=== PATIENT | female | born 1975 | race Caucasian/White ===

== ENCOUNTER 2022-01-15 21:35 | Emergency (ER) | payer OTHER, SELFPAY ==
[2022-01-15 22:06] VITALS: BP 97/58; PULSE 86; RESP 16; TEMP 37.1; O2SAT 100; BMI 21.0
[2022-01-15 22:27] LABS: Basophils # 0.3 K/mm3 (0-0.2); Basophils % 2.5 % (0.1-2.0); Eosinophils # 0.2 K/mm3 (0.0-0.4); Eosinophils % 1.3 % (0.1-12.0); Hematocrit 40.2 % (37.0-47.0); Hemoglobin 13.9 g/dL (12.2-16.2); Lymphocytes # 3.4 K/mm3 (0.7-4.5); Lymphocytes % 25.8 % (10-50); Mean Corpuscular HGB Conc 34.5 g/dL (31.8-35.4); Mean Corpuscular Hemoglobin 30.5 pg (27.0-31.2); Mean Corpuscular Volume 88.3 fl (81-99); Monocytes # 0.7 K/mm3 (0.1-1.0); Monocytes % 5.4 % (1.7-9.3); Neutrophils # 8.7 K/mm3 (1.8-7.8); Platelet Count 456 K/mm3 (142-424); Red Blood Count 4.55 M/mm3 (4.20-5.40); Red Cell Distribution Width 14.4 % (11.5-17.5); White Blood Count 13.4 K/mm3 (4.8-10.8)
[2022-01-15 22:30] LABS: Alanine Aminotransferase 25 U/L (12-78); Albumin/Globulin Ratio 1.3 (1.1-1.8); Alkaline Phosphatase 86 U/L (38-126); Anion Gap 9.7 mEq/L (5-15); Aspartate Amino Transferase 40 U/L (14-36); Bilirubin,Total 0.2 mg/dl (0.2-1.3); Blood Urea Nitrogen 14 mg/dl (7-17); Calcium 9.3 mg/dl (8.4-10.2); Carbon Dioxide 36 mmol/L (22.0-30.0); Chloride 95 mmol/L (98-107); Creatinine Clearance Estimated 71 mL/min (50-200); Estimated Glomerular Filt Rate 77 ml/min (>60); GFR (African American) 93 ML/MIN (>60); Glucose 128 mg/dl (74-100); Sodium 139 mmol/L (136-145)
--- NOTE | 2022-01-15 22:32 | ECG_ITS ---
APPROVED REPORT Exam: Resting ECG HR:75 bpm ECG Measurements Heart Rate 75 AXES AK 156 P 85 QRSd 89 QRS 57 QT 391 T 77 QTc 420 Conclusion SINUS RHYTHM NONSPECIFIC ST & T-WAVE ABNORMALITY BORDERLINE ECG UNCONFIRMED REPORT Electronically signed by : Saul Weeks MD 01/17/2022 17:33:25
[2022-01-15 22:35] LABS: C-Reactive Protein 1.1 mg/L (0-4)
[2022-01-15 22:42] LABS: Potassium 1.7 mmoL/L (3.5-5.1)
[2022-01-15 22:49] LABS: Procalcitonin 0.049 ng/mL (0.0-2.0)
[2022-01-15 22:55] LABS: Troponin I < 0.01 ng/ml (0.00-0.034)
[2022-01-15 22:59] LABS: Coronavirus 19, PCR Not Detected (NotDetected); Influenza A, PCR Not Detected (NotDetected); Influenza B, PCR Not Detected (NotDetected)
[2022-01-15 23:14] LABS: Erythrocyte Sedimentation Rate 15 mm/hr (0-20)
[2022-01-15 23:15] VITALS: BP 104/67; PULSE 76; RESP 14; O2SAT 99
--- NOTE | 2022-01-16 00:31 | HMH.EDDIZZ ---
ED Disposition Clinical Impression: Hypokalemia Disposition: Home, Self-Care Condition on Discharge: Good Instructions: DI for Hypokalemia Additional Instructions: call pcp for follow up Prescriptions: Potassium Chloride [Pot Chlor 20 mEq Packet] 20 meq PO BID #4 packet Transmission Status: Pending to [id number] Referrals: Provider,Referral, [Primary Care Provider] - - Critical Care Critical Care Time: No Attestation: On 01/15/22, the high probability of a clinically significant, sudden or life threatening deterioration of the following system(s) required my full and direct attention, intervention and personal management. The time I documented below is in addition to time spent performing reported procedures but includes the following listed in this critical care notation. Medical Decision Making - Medical Records Medical records reviewed: Yes: I reviewed the patient's medical records. - Ricardo Inquiry Pt receiving controlled substance: No Vital Signs: 01/15/22 22:06 01/15/22 23:15 01/16/22 01:16 Temperature 98.7 F Temperature Source Oral Pulse Rate 76 77 Pulse Rate [Left Brachial] 86 Respiratory Rate 16 14 14 Blood Pressure 104/67 L 118/75 Blood Pressure [Left Arm] 97/58 L Blood Pressure Mean 82 Blood Pressure Mean [Left Arm] 71 Blood Pressure Source Blood Pressure Source [Left Arm] Automatic Cuff Blood Pressure Position Blood Pressure Position [Left Arm] Sitting 02 Sat by Pulse Oximetry 100 99 98 Oxygen Delivery Method Room Air Room Air 01/16/22 01:46 01/16/22 02:57 Temperature 98.2 F Temperature Source Oral Pulse Rate 75 75 Pulse Rate [Left Brachial] Respiratory Rate 18 Blood Pressure 106/69 L 106/69 L Blood Pressure [Left Arm] Blood Pressure Mean Blood Pressure Mean [Left Arm] Blood Pressure Source Automatic Cuff Blood Pressure Source [Left Arm] Blood Pressure Position Sitting Blood Pressure Position [Left Arm] 02 Sat by Pulse Oximetry 97 Oxygen Delivery Method Room Air Room Air - Lab Data Lab results reviewed: Yes: I reviewed the patient's lab results. Lab Results 01/15/22 22:00: WBC 13.4 H, RBC 4.55, Hgb 13.9, Hct 40.2, MCV 88.3, MCH 30.5, MCHC 34.5, RDW 14.4, Plt Count 456 H, MPV 9.0, Neut % (Auto) 65.0, Lymph % (Auto) 25.8, Teller % (Auto) 5.4, Eos % (Auto) 1.3, Baso % (Auto) 2.5 H, Neut # (Auto) 8.7 H, Lymph # (Auto) 3.4, Teller # (Auto) 0.7, Eos # (Auto) 0.2, Baso # (Auto) 0.3 H, ESR 15 01/15/22 22:00: Sodium 139, Potassium 1.7 L*, Chloride 95 L, Carbon Dioxide 36 H, Anion Gap 9.7, BUN 14, Creatinine 0.80, Estimated Creat Clear 71, Estimated GFR 77, Est GFR ( Amer) 93, Glucose 128 H, Calcium 9.3, Total Bilirubin 0.2, AST 40 H, ALT 25, Alkaline Phosphatase 86, Troponin I < 0.01, C-Reactive Protein 1.1, Total Protein 7.0, Albumin 4.0, Globulin 3.0, Albumin/Globulin Ratio 1.3, Procalcitonin 0.049 01/15/22 22:53: SARS-CoV-2 (PCR) Not detected, Influenza A Untype (PCR) Not detected, Influenza Type B (PCR) Not detected 01/16/22 00:00: Free T4 1.37 01/16/22 00:00: TSH 1.47 01/16/22 00:00: Magnesium 1.9 01/16/22 01:15: Urine Color Dark yellow, Urine Appearance Cloudy, Urine pH 6.0, Ur Specific [place] 1.025, Urine Protein 1+, Urine Glucose (UA) Negative, Urine Ketones Trace, Urine Blood 2+, Urine Nitrate Negative, Urine Bilirubin Negative, Urine Urobilinogen 1.0, Ur Leukocyte Esterase 1+ A, Urine WBC 5-10, Urine Bacteria 3+ 01/16/22 02:33: Potassium 2.4 L* D Result diagrams: 01/15/22 22:00 01/16/22 02:33 Orders (Tests/Meds): ED MEDICATIONS Discontinued Medications Generic Name Dose Route Start Last Admin Trade Name Freq PRN Reason Stop Dose Admin Sodium Chloride 1,000 mls @ 999 mls/hr 01/15/22 22:30 01/15/22 22:23 Sod Chlor 0.9% 1000ml Bag IV 01/15/22 23:30 999 mls/hr .Q1H1M ZAHIRA Administration Potassium Chloride/Water 100 mls @ 50 mls/hr 01/15/22 23:00 01/16/22 00:16 Potassium Chloride 20meq/100m
--- NOTE | 2022-01-16 00:32 | XR_ITS ---
PROCEDURE INFORMATION: Exam: XR Chest Exam date and time: 01/16/2022 12:31 AM Age: 47 years old Clinical indication: Other: Syncope TECHNIQUE: Imaging protocol: Radiologic exam of the chest. Views: 2 views. COMPARISON: No relevant prior studies available. FINDINGS: Lungs: No focal airspace consolidation. Pleural spaces: No pleural effusion. No pneumothorax. Heart/Mediastinum: Unremarkable cardiomediastinal silhouette. Bones/joints: No acute osseous findings. Gastrointestinal tract: Gastric band is noted with a more horizontal lie the normal. IMPRESSION: Gastric band is noted with a more horizontal lie the normal. Recommend fluoroscopic evaluation.
--- NOTE | 2022-01-16 00:32 | CT_ITS ---
PROCEDURE INFORMATION: Exam: CT Head Without Contrast Exam date and time: 01/16/2022 12:39 AM Age: 47 years old Clinical indication: Injury or trauma; Blunt trauma (contusions or hematomas); Consciousness not specified; Injury date: Today; Injury details: Fall, hit lt side of head; Additional info: Syncope TECHNIQUE: Imaging protocol: Computed tomography of the head without contrast. Radiation optimization: All CT scans at this facility use at least one of these dose optimization techniques: automated exposure control; mA and/or kV adjustment per patient size (includes targeted exams where dose is matched to clinical indication); or iterative reconstruction. COMPARISON: No relevant prior studies available. FINDINGS: Brain: No hemorrhage. No mass effect. Cerebral ventricles: No ventriculomegaly. Paranasal sinuses: No fluid levels. Mastoid air cells: Visualized mastoid air cells are well aerated. Bones/joints: No acute fracture. Soft tissues: The visualized soft tissue is grossly unremarkable. IMPRESSION: No evidence of acute intracranial hemorrhage.
[2022-01-16 00:55] LABS: Magnesium 1.9 mg/dl (1.6-2.3)
[2022-01-16 01:12] LABS: Free T4 (Free Thyroxine) 1.37 ng/dl (0.78-2.19)
[2022-01-16 01:16] VITALS: BP 118/75; PULSE 77; RESP 14; O2SAT 98
[2022-01-16 01:20] LABS: Microscopic, Urine URINE MICROSCOPIC (MICROSCOPIC)
[2022-01-16 01:27] LABS: Thyroid Stimulating Hormone 1.47 uIU/mL (0.465-4.68)
[2022-01-16 01:31] LABS: Blood, Urine 2+ (Negative); Glucose,Urine (UA) Negative (Negative); Ketones,Urine TRACE (Negative); Leukocyte Esterase,Urine 1+ (Negative); Nitrate,Urine Negative (Negative); Protein,Urine 1+ (Negative); Specific Gravity, Urine 1.025 (1.005-1.030)
[2022-01-16 01:33] LABS: Appearance,Urine Cloudy (Clear); Bilirubin,Urine Negative (Negative); Color,Urine Dark Yellow (Yellow)
[2022-01-16 01:46] VITALS: BP 106/69; PULSE 75; O2SAT 97
[2022-01-16 01:55] LABS: Bacteria,Urine 3+ /lpf
[2022-01-16 02:54] LABS: Potassium 2.4 mmoL/L (3.5-5.1)
--- NOTE | 2022-01-16 02:55 | PC.NURSE ---
Critical K+ called by Eleonora in lab. notified.
[2022-01-16 02:57] VITALS: BP 106/69; PULSE 75; RESP 18; TEMP 36.8; O2SAT 99
== END 2022-01-16 03:00 | disposition home or self-care (01) ==
PROVIDERS: Emergency Provider Emergency Medicine
DX: E87.6 Hypokalemia (principal)
CPT/HCPCS: 70450; 71046; 80053; 81001; 82088; 83735; 84132; 84145; 84244; 84439; 84443; 84484; 85025; 85651; 86140; 87086; 87088; 87186; 93005; 96365; 96366; 96375; 99284; C9803; J2405; U0003; U0005

== ENCOUNTER → 2022-01-17 11:43 | Outpatient (CLI) | payer OTHER, SELFPAY ==
[2022-01-17 12:50] LABS: Chloride 101 mmol/L (98-107); Sodium 141 mmol/L (136-145)
[2022-01-17 12:53] LABS: Anion Gap 6.7 mEq/L (5-15); Blood Urea Nitrogen 9 mg/dl (7-17); Calcium 9.3 mg/dl (8.4-10.2); Carbon Dioxide 36 mmol/L (22.0-30.0); Estimated Glomerular Filt Rate 89 ml/min (>60); GFR (African American) 108 ML/MIN (>60); Glucose 97 mg/dl (74-100)
[2022-01-17 13:34] LABS: Potassium 2.7 mmoL/L (3.5-5.1)
== END ==
PROVIDERS: PCP Pediatrics; Visit Provider Emergency Medicine
DX: E87.6 Hypokalemia (principal)
CPT/HCPCS: 36415; 80048

== ENCOUNTER 2022-09-19 19:59 | Emergency (ER) | payer BC, OTHER, SELFPAY ==
[2022-09-19 20:34] VITALS: BP 119/91; PULSE 127; RESP 18; TEMP 36.8; O2SAT 97; BMI 24.7
[2022-09-19 20:49] LABS: Basophils # 0.3 K/mm3 (0-0.2); Basophils % 1.5 % (0.1-2.0); Eosinophils # 0.2 K/mm3 (0.0-0.4); Eosinophils % 1.2 % (0.1-12.0); Hematocrit 46.8 % (37.0-47.0); Hemoglobin 16.3 g/dL (12.2-16.2); Lymphocytes # 3.3 K/mm3 (0.7-4.5); Lymphocytes % 17.2 % (10-50); Mean Corpuscular HGB Conc 34.9 g/dL (31.8-35.4); Mean Corpuscular Hemoglobin 30.5 pg (27.0-31.2); Mean Corpuscular Volume 87.4 fl (81-99); Mean Platelet Volume 10.1 fl (7.4-10.4); Microscopic, Urine URINE MICROSCOPIC (MICROSCOPIC); Monocytes # 0.8 K/mm3 (0.1-1.0); Monocytes % 4.1 % (1.7-9.3); Neutrophils # 14.5 K/mm3 (1.8-7.8); Platelet Count 514 K/mm3 (142-424); Red Blood Count 5.35 M/mm3 (4.20-5.40); Red Cell Distribution Width 13.3 % (11.5-17.5); White Blood Count 19.1 K/mm3 (4.8-10.8)
[2022-09-19 20:52] LABS: Appearance,Urine SL CLOUDY (Clear); Blood, Urine 3+ (Negative); Color,Urine YELLOW (Yellow); Glucose,Urine (UA) Negative (Negative); Ketones,Urine 3+ (Negative); Leukocyte Esterase,Urine 1+ (Negative); Nitrate,Urine Negative (Negative); Protein,Urine 2+ (Negative); Specific Gravity, Urine >= 1.030 (1.005-1.030); Urobilinogen,Urine 0.2 EU/dl (0.2)
[2022-09-19 20:54] LABS: Alanine Aminotransferase 30 U/L (12-78); Albumin Level 5.7 g/dl (3.5-5.0); Albumin/Globulin Ratio 1.2 (1.1-1.8); Alkaline Phosphatase 119 U/L (38-126); Amylase 75 U/L (30-110); Anion Gap 27.8 mEq/L (5-15); Aspartate Amino Transferase 40 U/L (14-36); Bilirubin,Total 0.9 mg/dl (0.2-1.3); Blood Urea Nitrogen 22 mg/dl (7-17); Calcium 10.2 mg/dl (8.4-10.2); Carbon Dioxide 16 mmol/L (22.0-30.0); Chloride 106 mmol/L (98-107); Creatinine Clearance Estimated 55 mL/min (50-200); Estimated Glomerular Filt Rate 48 ml/min (>60); GFR (African American) 58 ML/MIN (>60); Globulin 4.7 g/dL (1.3-3.2); Glucose 109 mg/dl (74-100); Lipase 86 U/L (23-300); Sodium 147 mmol/L (136-145); Total Protein,Serum 10.4 g/dl (6.3-8.2); Urine Pregnancy, HCG Qual. Negative (Negative)
[2022-09-19 20:55] LABS: MANUAL DIFFERENTIAL MANUAL DIFFERENTIAL (MANUAL DIFF)
[2022-09-19 20:57] LABS: Potassium 2.8 mmoL/L (3.5-5.1)
--- NOTE | 2022-09-19 20:58 | PC.NURSE ---
lab called critical potassium level of 2.8. notified. Orders given for 2 runs of potassium.
[2022-09-19 21:00] VITALS: BP 137/92; PULSE 89; O2SAT 98
[2022-09-19 21:00] LABS: Bilirubin,Urine 2+ (Negative)
[2022-09-19 21:05] LABS: Bacteria,Urine 2+ /lpf; Squamous Epithelial Cell,Urine 50-100 #/hpf (0-5); WBC,Urine 20-50 #/hpf (0-3)
--- NOTE | 2022-09-19 21:05 | PC.NURSE ---
Per MD, patient was given a popsicle.
[2022-09-19 21:21] LABS: Eosinophils % 1 % (0-3); Lymphocytes % 25 % (10-50); Monocytes % 3 % (2-9); Neutrophils % 71 % (42-76); Platelet Estimate Slight Increase; Total Cells Counted 100
--- NOTE | 2022-09-19 21:21 | PC.NURSE ---
Patient was found vomiting. Vomit appeared to be from the popsicle.
[2022-09-19 21:22] LABS: RBC Morphology Normal
--- NOTE | 2022-09-19 21:26 | CT_ITS ---
PROCEDURE INFORMATION: Exam: CT Abdomen And Pelvis With Contrast Exam date and time: 09/19/2022 9:41 PM Age: 47 years old Clinical indication: Nausea and vomiting; Additional info: Vomitting TECHNIQUE: Imaging protocol: Computed tomography of the abdomen and pelvis with contrast. Radiation optimization: All CT scans at this facility use at least one of these dose optimization techniques: automated exposure control; mA and/or kV adjustment per patient size (includes targeted exams where dose is matched to clinical indication); or iterative reconstruction. Contrast material: ISOVUE; Contrast volume: 75 ml; Contrast route: IV; Other protocol: This patient has received [address] and 0 known cardiac nuclear medicine studies in the 12 months prior to the current study. COMPARISON: CR XR CHEST 2V 01/16/2022 12:31 AM FINDINGS: Diaphragm: Small hiatal hernia with fluid within the lower esophagus. Liver: Normal. No mass. Gallbladder and bile ducts: No calcified stones. No ductal dilation. Pancreas: Normal enhancement. No ductal dilation. Spleen: There are multiple splenic calcifications likely on the basis of prior granulomatous exposure. Adrenal glands: No mass. Kidneys and ureters: Hypoattenuating renal lesions too small to characterize. No hydronephrosis. Stomach and bowel: Gastric band is present. Proximal portion of the stomach is somewhat distended. Appendix: No evidence of appendicitis. Intraperitoneal space: No significant fluid collection. No free air. Vasculature: No abdominal aortic aneurysm. Lymph nodes: No enlarged lymph nodes. Urinary bladder: No acute abnormality. Reproductive: Multiloculated cystic lesion within the left adnexa measuring 4.8 x 6.5 cm. 17 mm rounded hypodensity within the region of the cervix. Bones/joints: No acute fracture. Soft tissues: Bilateral breast implants. IMPRESSION: 1. Status post gastric banding with proximal distention and fluid extending into the lower esophagus. 2. Multiloculated cystic lesion within the left adnexa which may be benign or malignant and could be further evaluated with ultrasound on a nonemergent basis. 3. 17 mm rounded hypodensity within the region of the cervix which is statistically likely a nabothian cyst but can be evaluated with ultrasound as above.
--- NOTE | 2022-09-19 22:09 | PC.NURSE ---
Pt resting in bed. Patient given a warm blanket and a remote control. As of yet, no new episodes of emesis.
--- NOTE | 2022-09-19 22:30 | HMH.EDNVD ---
Discharge Plan Disposition Chief Complaint: Nausea/Vomiting/Diarrhea Prescriptions Prescriptions: No Action cyclobenzaprine 10 mg tablet 10 mg PO DAILY ibuprofen 800 mg tablet 800 mg PO BID PRN (Reason: Headache) escitalopram oxalate 10 mg tablet 10 mg PO DAILY Referrals Follow up/Referrals: Blu Rodriguez [Primary Care Provider] - See instructions Clinical Impressions Clinical Impression: Hypokalemia, HEIDI (acute kidney injury), Increased anion gap metabolic acidosis Discharge ED Provider: Nadege (ED),Blade Collins Nausea/Vomiting/Diarrhea HPI General Chief complaint: Nausea/Vomiting/Diarrhea Stated complaint: vomiting Time Seen by Provider: 09/19/22 20:15 Mode of Arrival: Wheelchair Source of Information: Patient, Spouse and Medical Record Limitations: No Limitations Description of Symptoms (Recalled from ER Triage Doc. by RN): Patient arrives via private vehicle. C/O Nausea and vomiting since Thursday night. Patient reports that she has an adjustable lap band that was placed in 2008, states she went to see her bariatric doctor on Thursday and had the band adjusted. States they added more fluid to the lapband than she is used to. States that this happened once last year which required an emergency room visit. Pt states that since her adjustment thursday she isn't able to keep any fluids down at all. She is afraid she is dehydrated and her potassium is low. History of Present Illness HPI Narrative: has lap band in 2008 and had adjustment a few days ago pt with vomiting and nausea with dec po intake since MD complaint: nausea, vomiting and abdominal pain Onset (ago): day(s) Associated Abdominal Pain: Yes Location of pain: diffuse Severity: moderate Consistency: intermittent Context: recent surgery/procedure Associated symptoms: denies other symptoms Related Data Home Medications Medication Instructions Recorded Confirmed cyclobenzaprine 10 mg tablet 10 mg PO DAILY muscle relaxer 09/19/22 09/19/22 escitalopram oxalate 10 mg tablet 10 mg PO DAILY Anxiety 09/19/22 09/19/22 ibuprofen 800 mg tablet 800 mg PO BID PRN Headache 09/19/22 09/19/22 Allergies Allergy/AdvReac Type Severity Reaction Status Date / Time No Known Allergies Allergy Verified 09/19/22 23:53 [facility] Disclaimer: The information contained in this section may have been updated after the patient was seen, as this information can be updated by other users. Medical History (Updated 09/20/22 @ 01:03 by Blade Light (ED)MD) Anxiety Hypokalemia due to excessive gastrointestinal loss of potassium Surgical History (Updated 09/19/22 @ 20:45 by Kasey Myles RN) H/O laparoscopic adjustable gastric banding Social History Smoking Status: Current every day smoker alcohol intake: never current occupational status: employed Travel in the last 8 weeks: None ROS Obtained: Yes All systems reviewed & no additional complaints except as documented Physical Exam General General appearance: alert Head Head exam: normocephalic Eye Eye exam: Present PERRL and EOMI ENT ENT exam: Present mucous membranes moist Neck Neck exam: Present trachea midline Respiratory Respiratory exam: Present normal lung sounds bilaterally; Absent respiratory distress Cardiovascular Cardiovascular exam: Present regular rate Abdominal Exam Abdominal exam: Present soft and tenderness; Absent guarding Extremities Exam Extremities exam: Present full ROM Neurological Exam Neurological exam: Present alert and CN II-XII intact Psychiatric Psychiatric exam: Present normal affect Skin Skin exam: Absent rash Medical Decision Making Medical Records Medical records reviewed: Yes I reviewed the patient's medical records. Ricardo Inquiry Pt receiving controlled substance: No Vital Signs: 09/19/22 20:34 09/19/22 21:00 Temperature 98.3 F Temperature Source Oral Pulse Rate 89 Pulse Rate [Apical] 127 H Respiratory Rate 18
[2022-09-19 22:57] LABS: Lactic Acid 1.2 mmol/L (0.7-2.1)
--- NOTE | 2022-09-19 23:12 | PC.NURSE ---
linda on phone with dr garcia @ [facility]
--- NOTE | 2022-09-19 23:50 | PC.NURSE ---
Radha from office called and requested that patient be given prophylactic zosyn and be made npo. Also informed that patient will be admitted to [place] pending room assignment from hospital.
[2022-09-20] VITALS (20 sets, daily range): BP systolic 105–126; BP diastolic 64–81; PULSE 82–99; RESP 17; TEMP 36.5; O2SAT 94–100
--- NOTE | 2022-09-20 00:12 | PC.NURSE ---
notified of Radha garvin for request to have zosyn and be made npo with transfer to [place]. Orders received.
--- NOTE | 2022-09-20 00:46 | PC.NURSE ---
linda on phone with hospitalist at [facility]. they state no beds available at this time but is accepted
[2022-09-20 00:48] LABS: Coronavirus 19, PCR Not Detected (NotDetected); Influenza A, PCR Not Detected (NotDetected); Influenza B, PCR Not Detected (NotDetected)
--- NOTE | 2022-09-20 01:14 | PC.NURSE ---
Rounded on patient. Patient ambulated to the restroom. Patient verbalized no complaints at this time.
--- NOTE | 2022-09-20 03:22 | PC.NURSE ---
rounded on pt. pt resting and voiced no c/o. @ bedside.
--- NOTE | 2022-09-20 05:44 | PC.NURSE ---
pt voiced no c/o. at bedside
--- NOTE | 2022-09-20 08:02 | PC.NURSE ---
rounded on pt assit her to unhook from b/p machine to go to the restroom,gave her enough water to wet swabs to help with dry mouth, pt is npo due to waiting transfer to [facility] in [place]
--- NOTE | 2022-09-20 08:28 | PC.NURSE ---
Expecting return call from [facility] for bed availability
[2022-09-20 08:52] LABS: Chloride 119 mmol/L (98-107); Potassium 3.1 mmoL/L (3.5-5.1); Sodium 147 mmol/L (136-145)
[2022-09-20 08:55] LABS: Anion Gap 13.1 mEq/L (5-15); Blood Urea Nitrogen 16 mg/dl (7-17); Carbon Dioxide 18 mmol/L (22.0-30.0); Creatinine Clearance Estimated 74 mL/min (50-200); Estimated Glomerular Filt Rate 67 ml/min (>60); GFR (African American) 81 ML/MIN (>60)
[2022-09-20 08:56] LABS: Calcium 7.6 mg/dl (8.4-10.2); Glucose 68 mg/dl (74-100)
--- NOTE | 2022-09-20 09:14 | PC.NURSE ---
rounded on pt she stated she was feeling nausea but all she was doing was driheaving, and she was thirsty and hungry at the same time but she is npo due to waiting transport to [facility]. i reported to vicki kaiser about the pt symptoms
--- NOTE | 2022-09-20 10:06 | PC.NURSE ---
Pt is feeling better, reports headache much improved, nausea and shakiness also improved to absent, pt expresses her gratitude and has no further questions at this time
--- NOTE | 2022-09-20 10:13 | PC.NURSE ---
call [facility] to get a status update on bed was informed they didnt have many discharges and had quite a few holding in ed for admission as well asked if he inticapted if it will be today and he wasnt able to say at this moment for admission
--- NOTE | 2022-09-20 10:35 | PC.NURSE ---
er in room
--- NOTE | 2022-09-20 10:52 | PC.NURSE ---
rounded on pt is sleeping and at bedside
--- NOTE | 2022-09-20 11:13 | PC.NURSE ---
Reached nutrition internship provider Esperanza Cordero for [facility] service for established pt with lap band adjustment on 09/17 and resulting n/v that PM and resulting metabolic imbalance, discussion ensured with ED physician on pt disposition
--- NOTE | 2022-09-20 11:20 | PC.NURSE ---
Decision to contact bariatric surgeon, awaiting call back
--- NOTE | 2022-09-20 11:21 | PC.NURSE ---
liza rounded on pt states no complaints at this time
--- NOTE | 2022-09-20 11:30 | PC.NURSE ---
BLANCA DELGADILLO SPEAKING TO MOISES MERINO DOC FROM [facility] ABOUT PT UPDATE
--- NOTE | 2022-09-20 11:31 | PC.NURSE ---
ER AT BEDSIDE
--- NOTE | 2022-09-20 11:34 | HMH.EDGENADL ---
Discharge Plan Disposition Patient Disposition: Home, Self-Care Condition: Good Prescriptions Prescriptions: No Action cyclobenzaprine 10 mg tablet 10 mg PO DAILY ibuprofen 800 mg tablet 800 mg PO BID PRN (Reason: Headache) escitalopram oxalate 10 mg tablet 10 mg PO DAILY Referrals Follow up/Referrals: Blu Rodriguez [Primary Care Provider] - See instructions Activity Restrictions/Add. Instructions Additional Instructions/Restrictions: If you have persistent problems tolerating oral intake, go to [place] emergency department so that your bariatric surgeon can adjust your gastric band. Clinical Impressions Clinical Impression: Hypokalemia, HEIDI (acute kidney injury), Increased anion gap metabolic acidosis, Complication of gastric banding Instructions Patient Instructions: DI for Dehydration -- Adult, DI for Hypokalemia Discharge ED Provider: Nadege (ED)Blade General Adult HPI General Chief complaint: Nausea/Vomiting/Diarrhea Stated complaint: vomiting Time Seen by Provider: 09/19/22 20:15 Mode of Arrival: Wheelchair Source of Information: Patient, Spouse and Medical Record Limitations: No Limitations Description of Symptoms (Recalled from ER Triage Doc. by RN): Patient arrives via private vehicle. C/O Nausea and vomiting since Thursday night. Patient reports that she has an adjustable lap band that was placed in 2008, states she went to see her bariatric doctor on Thursday and had the band adjusted. States they added more fluid to the lapband than she is used to. States that this happened once last year which required an emergency room visit. Pt states that since her adjustment thursday she isn't able to keep any fluids down at all. She is afraid she is dehydrated and her potassium is low. History of Present Illness HPI narrative: 8:00 AM: At shift change, patient report received from Dr. Light, and care of the patient assumed by me at this time. Onset (ago): day(s) Related Data Home Medications Medication Instructions Recorded Confirmed cyclobenzaprine 10 mg tablet 10 mg PO DAILY muscle relaxer 09/19/22 09/19/22 escitalopram oxalate 10 mg tablet 10 mg PO DAILY Anxiety 09/19/22 09/19/22 ibuprofen 800 mg tablet 800 mg PO BID PRN Headache 09/19/22 09/19/22 Allergies Allergy/AdvReac Type Severity Reaction Status Date / Time No Known Allergies Allergy Verified 09/19/22 23:53 [facility] Disclaimer: The information contained in this section may have been updated after the patient was seen, as this information can be updated by other users. Medical History (Updated 09/20/22 @ 11:39 by Blu Lutz MD) Anxiety Hypokalemia due to excessive gastrointestinal loss of potassium Surgical History (Updated 09/19/22 @ 20:45 by Kasey Myles RN) H/O laparoscopic adjustable gastric banding Social History (Updated 09/20/22 @ 01:03 by Blade Light (PRITESH)MD) Smoking Status: Current every day smoker alcohol intake: never current occupational status: employed Travel in the last 8 weeks: None ROS Obtained: Yes other (See Dr. Light's note) Physical Exam General General appearance: alert Neck Neck exam: Present normal inspection Chest Chest inspection: Present normal inspection and symmetric chest wall rise Respiratory Respiratory exam: Absent respiratory distress Cardiovascular Cardiovascular exam: Present regular rate Abdominal Exam Abdominal exam: Present soft; Absent tenderness Neurological Exam Neurological exam: Present alert Medical Decision Making Ricardo Inquiry Pt receiving controlled substance: No Vital Signs: 09/19/22 20:34 09/19/22 21:00 09/20/22 03:22 Temperature 98.3 F Temperature Source Oral Pulse Rate 89 92 H Pulse Rate [Apical] 127 H Respiratory Rate 18 Blood Pressure 137/92 H 112/69 Blood Pressure [Right Arm] 119/91 H Blood Pressure Mean 83 Blood Pressure Mean [Right Arm] 100 Blood Pressure Source [
--- NOTE | 2022-09-20 11:50 | PC.NURSE ---
PT BEING DISCHARGED STATES NO COMPLAINTS AT THIS TIME
== END 2022-09-20 12:03 | disposition home or self-care (01) ==
PROVIDERS: Emergency Medicine; Emergency Provider Emergency Medicine; PCP Pediatrics
DX: K95.09 Other complications of gastric band procedure (principal); E87.6 Hypokalemia; N17.9 Acute kidney failure, unspecified; E87.29 Other acidosis; F41.9 Anxiety disorder, unspecified; F17.210 Nicotine dependence, cigarettes, uncomplicated; Z20.822 Contact with and (suspected) exposure to COVID-19
CPT/HCPCS: 74177; 80048; 80053; 81001; 81025; 82150; 83605; 83690; 85007; 85025; 87086; 96361; 96365; 96375; 99285; C9803; J0131; J2405; J2543; Q9967; U0003; U0005

== ENCOUNTER 2022-12-01 18:56 | Observation (INO) | payer BC, OTHER, SELFPAY ==
[2022-12-01 18:59] VITALS: BP 142/90; PULSE 120; RESP 17; TEMP 36.8; O2SAT 98; BMI 23.8
[2022-12-01 19:05] VITALS: BP 142/90; PULSE 124; O2SAT 98
--- NOTE | 2022-12-01 19:23 | XR_ITS ---
PROCEDURE INFORMATION: Exam: XR Complete Acute Abdomen Series Including Chest Exam date and time: 12/01/2022 7:30 PM Age: 47 years old Clinical indication: Nausea and vomiting; Additional info: Nausea, vomiting TECHNIQUE: Imaging protocol: Radiologic exam. Complete acute abdomen series, including 2 or more views of the abdomen and a single view chest. COMPARISON: CT ABDOMEN PELVIS W CON 09/19/2022 9:41 PM FINDINGS: Lungs: Right hilar calcified granuloma. Pleural spaces: Normal. No pleural effusions. No pneumothorax. Heart/Mediastinum: Normal. No cardiomegaly. Gastrointestinal tract: Gastric band in place. The phi angle measures 77 degrees with band in more horizontal orientation than typical suspicious for slippage. Stool throughout the colon suggests constipation. No bowel obstruction. Intraperitoneal space: Normal. No free air. Bones/joints: Normal. No acute fracture. Soft tissues: Normal. IMPRESSION: 1. Status post gastric band. The band phi angle is elevated measuring 77 degrees suspicious for possible band slippage. Recommend clinical correlation. 2. Stool throughout the colon suggests constipation. No bowel obstruction.
[2022-12-01 19:34] LABS: Microscopic, Urine URINE MICROSCOPIC (MICROSCOPIC)
[2022-12-01 19:39] LABS: Basophils # 0.1 K/mm3 (0-0.2); Basophils % 0.4 % (0.1-2.0); Eosinophils # 0.4 K/mm3 (0.0-0.4); Hematocrit 47.8 % (37.0-47.0); Hemoglobin 16.4 g/dL (12.2-16.2); Lymphocytes # 3.7 K/mm3 (0.7-4.5); Lymphocytes % 19.1 % (10-50); Mean Corpuscular HGB Conc 34.4 g/dL (31.8-35.4); Mean Corpuscular Hemoglobin 29.8 pg (27.0-31.2); Mean Corpuscular Volume 86.5 fl (81-99); Mean Platelet Volume 9.7 fl (7.4-10.4); Monocytes # 1.1 K/mm3 (0.1-1.0); Monocytes % 5.6 % (1.7-9.3); Neutrophils # 14.2 K/mm3 (1.8-7.8); Neutrophils % 72.9 % (37.0-80.0); Platelet Count 501 K/mm3 (142-424); Red Blood Count 5.53 M/mm3 (4.20-5.40); Red Cell Distribution Width 13.4 % (11.5-17.5); White Blood Count 19.5 K/mm3 (4.8-10.8)
[2022-12-01 19:43] LABS: MANUAL DIFFERENTIAL MANUAL DIFFERENTIAL (MANUAL DIFF)
[2022-12-01 19:44] LABS: Chloride 86 mmol/L (98-107); Sodium 135 mmol/L (136-145)
[2022-12-01 19:47] LABS: Alanine Aminotransferase 45 U/L (12-78); Alkaline Phosphatase 111 U/L (38-126); Anion Gap 23.5 mEq/L (5-15); Aspartate Amino Transferase 54 U/L (14-36); Bilirubin,Total 0.9 mg/dl (0.2-1.3); Blood Urea Nitrogen 29 mg/dl (7-17); Carbon Dioxide 28 mmol/L (22.0-30.0); Creatinine Clearance Estimated 49 mL/min (50-200); Estimated Glomerular Filt Rate 44 ml/min (>60); GFR (African American) 53 ML/MIN (>60); Lipase 76 U/L (23-300)
[2022-12-01 19:48] LABS: Albumin Level 5.1 g/dl (3.5-5.0); Albumin/Globulin Ratio 1.2 (1.1-1.8); Calcium 10.2 mg/dl (8.4-10.2); Globulin 4.3 g/dL (1.3-3.2); Glucose 137 mg/dl (74-100); Total Protein,Serum 9.4 g/dl (6.3-8.2)
[2022-12-01 19:54] LABS: Appearance,Urine CLEAR (Clear); Blood, Urine 3+ (Negative); Color,Urine YELLOW (Yellow); Glucose,Urine (UA) Negative (Negative); Ketones,Urine 2+ (Negative); Leukocyte Esterase,Urine Negative (Negative); Nitrate,Urine Negative (Negative); Protein,Urine 2+ (Negative); Specific Gravity, Urine 1.025 (1.005-1.030); Urobilinogen,Urine 0.2 EU/dl (0.2)
--- NOTE | 2022-12-01 20:01 | PC.NURSE ---
Dr. August & Dr. Burger notified of critical potassium
[2022-12-01 20:02] LABS: Potassium 2.5 mmoL/L (3.5-5.1)
[2022-12-01 20:05] LABS: Eosinophils % 2 % (0-3); Hypochromasia 1+; Lymphocytes % 12 % (10-50); Monocytes % 5 % (2-9); Neutrophils % 81 % (42-76); Platelet Estimate Normal; Total Cells Counted 100
[2022-12-01 20:08] LABS: Bilirubin,Urine 2+ (Negative)
--- NOTE | 2022-12-01 20:10 | CT_ITS ---
PROCEDURE INFORMATION: Exam: CT Abdomen And Pelvis With Contrast Exam date and time: 12/01/2022 8:24 PM Age: 47 years old Clinical indication: Vomiting; Prior surgery; Additional info: HX gastric sleeve, vomiting, pain TECHNIQUE: Imaging protocol: Computed tomography of the abdomen and pelvis with contrast. Radiation optimization: All CT scans at this facility use at least one of these dose optimization techniques: automated exposure control; mA and/or kV adjustment per patient size (includes targeted exams where dose is matched to clinical indication); or iterative reconstruction. Contrast material: ISOVUE; Contrast volume: 75 ml; Contrast route: IV; REPORTING DATA: Count of CT and Cardiac NM exams in prior 12 months: This patient has received 2 known [address]s and 0 known cardiac nuclear medicine studies in the 12 months prior to the current study. COMPARISON: CT ABDOMEN PELVIS W CON 09/19/2022 9:41 PM FINDINGS: Lungs: Punctate calcified nodules in the right lower lobe. Mediastinal space: Partially visualized circumferential wall thickening of the distal esophagus with mild fluid in the distal esophagus. Liver: Unremarkable. Gallbladder and bile ducts: Unremarkable. Pancreas: Unremarkable. Spleen: Calcified splenic granulomas. Adrenal glands: Unremarkable. Kidneys and ureters: Right renal cortical scarring. No hydronephrosis. Subcentimeter hypodensity in the left inferior renal pole likely renal cyst Stomach and bowel: Gastric band with implanted pump in the anterior abdominal wall. Appendix: .Appendix not definitely visualized, but no inflammatory changes in the right lower quadrant in the expected location of the appendix. Intraperitoneal space: Unremarkable. Vasculature: Minimal atherosclerotic disease of the abdominal aorta. Lymph nodes: Unremarkable. Urinary bladder: Unremarkable as visualized. Reproductive: Stable presumed nabothian cyst at the cervix. Bones/joints: No acute osseous abnormality. Soft tissues: Unremarkable. IMPRESSION: 1. Status post gastric banding with partially visualized mild fluid distention of the distal esophagus. 2. Circumferential distal esophageal wall thickening, query esophagitis. 3. Prior left adnexal cystic lesion seen on 09/19/2022 exam not seen on current exam and may have represented a physiologic ovarian cyst. Stable presumed nabothian cyst at the cervix. COMMENTS: Consistent with the [place]'s Incidental Findings Committee white paper (J Am Norma Radiol 2018): Any incidental renal lesion less than 1 cm or classified as too small to characterize, or any incidental cystic renal lesion characterized as simple-appearing, is likely benign. No follow-up imaging is recommended for these lesions per consensus recommendations based on imaging criteria.
[2022-12-01 20:12] LABS: Bacteria,Urine 3+ /lpf; RBC,Urine Occasional #/hpf (0-3); Squamous Epithelial Cell,Urine TNTC #/hpf (0-5)
--- NOTE | 2022-12-01 20:50 | ECG_ITS ---
APPROVED REPORT Exam: Resting ECG HR:103 bpm ECG Measurements Heart Rate 103 AXES VA 154 P 84 QRSd 95 QRS 9 QT 429 T 69 QTc [address] DEVIATION AND MODERATE T-WAVE ABNORMALITY, CONSIDER INFERIOR ISCHEMIA [-0.1+ mV T-WAVE IN II/aVF] ABNORMAL ECG UNCONFIRMED REPORT Electronically signed by : Saul Weeks MD 12/02/2022 20:20:02
--- NOTE | 2022-12-01 21:15 | PC.NURSE ---
KCL rate 100 mL/hr changed to 50 mL/hr for comfort
--- NOTE | 2022-12-01 21:44 | HMH.EDGENADL ---
Discharge Plan Disposition Patient Disposition: Admitted as Observation Condition: Good Clinical Impressions Clinical Impression: HEIDI (acute kidney injury), Hypokalemia, Complication of gastric banding, Dehydration Discharge ED Provider: Hamlet August Adult HPI General Chief complaint: Weakness Stated complaint: No strength,hands drawing,weight loss Time Seen by Provider: 12/01/22 20:05 Mode of Arrival: Family Vehicle Source of Information: Patient Limitations: No Limitations Description of Symptoms (Recalled from ER Triage Doc. by RN): Pt presents to the ER with multiple complaints. She c/o nausea, vomiting, low back pain, headache, and muscle tightening. She reports she was so weak she fell last night and had her hands Draw up and clenching in the position for almost 15 min. She reports she has a hx of electrolyte imbalances and had 2 old potassium packets she has taken in the last 24 hr. However d/t the vomiting she in unsure if any stayed down . Hx of lap bacnd procedure and is scheduled to see her specialist tomrorrow since she has lost 10# less than 1 week. History of Present Illness HPI narrative: 47-year-old female presents with multiple complaints complaining of nausea vomiting low back pain headache and muscle stiffness. States that she was very weak last night had a near syncopal episode and has a history of lap banding that has had complications in the past resulting in severe dehydration electrolyte abnormalities. She denies diarrhea has kept nothing down liquid or food over the last 3 days has lost 10 pounds in a week and states that she is producing urine but it is less and she has not stooled in 5 days. Related Data Home Medications Medication Instructions Recorded Confirmed cyclobenzaprine 10 mg tablet 10 mg PO TIDP PRN Muscle Spasm 12/01/22 12/01/22 escitalopram oxalate 10 mg tablet 10 mg PO DAILY anxiety/depression 12/01/22 12/01/22 fluticasone propionate 50 1 spray intranasal DAILY Allergy 12/01/22 12/01/22 mcg/actuation nasal symptoms spray,suspension hydrochlorothiazide 12.5 mg capsule 12.5 mg PO DAILY daily 12/01/22 12/01/22 ibuprofen 800 mg tablet 800 mg PO TIDP PRN Pain 12/01/22 12/01/22 lorazepam 0.5 mg tablet 0.5 mg PO DIRECTED Anxiety 12/01/22 12/01/22 oxycodone-acetaminophen 5 mg-325 1 tab PO Q6HP PRN Pain 12/01/22 12/01/22 mg tablet topiramate 15 mg sprinkle capsule 15 mg PO DAILY Headache 12/01/22 12/01/22 Allergies Allergy/AdvReac Type Severity Reaction Status Date / Time No Known Allergies Allergy Verified 09/19/22 23:53 [facility] Disclaimer: The information contained in this section may have been updated after the patient was seen, as this information can be updated by other users. Medical History Anxiety Hypokalemia due to excessive gastrointestinal loss of potassium Surgical History H/O laparoscopic adjustable gastric banding Social History Smoking Status: Current every day smoker alcohol intake: never current occupational status: employed Travel in the last 8 weeks: None ROS Obtained: Yes Systems reviewed as appropriate & no additional complaints except as documented Physical Exam General General appearance: alert and in no apparent distress Head Head exam: atraumatic and normocephalic Eye Eye exam: Present normal appearance ENT ENT exam: Present mucous membranes moist Neck Neck exam: Present trachea midline Chest Chest inspection: Present normal inspection and symmetric chest wall rise Respiratory Respiratory exam: Present normal lung sounds bilaterally; Absent respiratory distress Cardiovascular Cardiovascular exam: Present regular rate and normal rhythm Abdominal Exam Abdominal exam: Present soft; Absent distention or tenderness Neurological Exam Neurological ex
[2022-12-01 21:50] VITALS: BP 125/78; PULSE 99; O2SAT 97
--- NOTE | 2022-12-01 21:52 | PC.NURSE ---
Rounded on pt. Pt able to have ice chips at this time per Dr. August. No other needs voiced.
--- NOTE | 2022-12-01 22:02 | EXP.HP ---
History of Present Illness *Admission Date: 12/01/22 *Reason for visit:: Nausea, vomiting *History of present illness: Ms. Elena is a 47-year-old female with a past medical history of Gastric Banding in 2008 who presents to [facility] due to continued nausea, vomiting and the inability to tolerate oral intake. She reports that she has lost 10 pounds in less than 1 week due to her symptoms. She has an appointment with her Surgeon in [place], [place] scheduled on 12/02, but due to continued inability to tolerate oral intake came into the ER. In the ER, the patient underwent an CT of the abdomen and pelvis that showed that she was status post gatric banding with partially visualized mid fluid in the distal esophagus. K was 2.5 and creatinine was 1.30. The patient will be admitted overnight with initial impression: Dehydration, Hypokalemia and HEIDI. In the ER, she received IV fluids and potassium replacement intravenously. [facility] Disclaimer: The information contained in this section may have been updated after the patient was seen, as this information can be updated by other users. Medical History Anxiety Hypokalemia due to excessive gastrointestinal loss of potassium Surgical History H/O laparoscopic adjustable gastric banding Social History Smoking Status: Current every day smoker alcohol intake: never current occupational status: employed Travel in the last 8 weeks: None Review of Systems Review of Systems Review of systems:: pertinent systems reviewed and negative unless documented below Constitutional Constitutional: Reports system reviewed and no additional complaints, except as documented Eyes Eyes: Reports system reviewed and no additional complaints, except as documented ENT Ears, Nose, Mouth, and Throat: Reports system reviewed and no additional complaints, except as documented *Cardiovascular Cardiovascular: Reports system reviewed and no additional complaints, except as documented *Respiratory Respiratory: Reports system reviewed and no additional complaints, except as documented *Gastrointestinal Gastrointestinal: Reports early satiety, Reports nausea and Reports vomiting *Genitourinary Genitourinary: Reports system reviewed and no additional complaints, except as documented *Musculoskeletal Musculoskeletal: Reports back pain Integumentary/Breasts Skin/Breast: Reports system reviewed and no additional complaints, except as documented *Neurologic Neurologic: Reports system reviewed and no additional complaints, except as documented Psychiatric Psychiatric: Reports system reviewed and no additional complaints, except as documented Endocrine Endocrine: Reports system reviewed and no additional complaints, except as documented Hematologic/Lymphatic Hematologic/Lymphatic: Reports system reviewed and no additional complaints, except as documented Allergic/Immunologic Allergic/Immunologic: Reports system reviewed and no additional complaints, except as documented Meds Home Medications and Allergies Home Medications Medication Instructions Recorded Confirmed Type cyclobenzaprine 10 mg tablet 10 mg PO TIDP PRN Muscle Spasm 12/01/22 12/01/22 History fluticasone propionate 50 1 spray intranasal DAILY Allergy 12/01/22 12/01/22 History mcg/actuation nasal symptoms spray,suspension hydrochlorothiazide 12.5 mg capsule 12.5 mg PO DAILY diuretic 12/01/22 12/01/22 History ibuprofen 800 mg tablet 800 mg PO TIDP PRN migraines 12/01/22 12/01/22 History potassium chloride 20 mEq 20 meq PO BID 30 days #60 tabs 12/02/22 Rx tablet,extended release(part/cryst) sennosides 8.6 mg-docusate sodium 1 tab PO BID PRN Constipation 30 12/02/22 Rx 50 mg tablet (Stool days #60 tabs Softener-Stimulant Laxative) New Prescriptions to Start
[2022-12-01 22:04] LABS: Coronavirus 19, PCR Not Detected (NotDetected); Influenza A, PCR Not Detected (NotDetected); Influenza B, PCR Not Detected (NotDetected)
--- NOTE | 2022-12-01 22:08 | PC.NURSE ---
Attempted to call report, no answer from nurse. Will try back
[2022-12-01 22:14] LABS: Magnesium 1.9 mg/dl (1.6-2.3)
--- NOTE | 2022-12-01 22:19 | PC.NURSE ---
Attempted to call report again. Nurse not available
[2022-12-01 22:25] VITALS: BP 125/78; PULSE 96; RESP 16; TEMP 36.7; O2SAT 97
--- NOTE | 2022-12-01 22:25 | PC.NURSE ---
Report called to [facility] 2nd floor
--- NOTE | 2022-12-01 22:54 | PC.NURSE ---
pt arrived via wheelchair @ [phone]
[2022-12-01 23:05] VITALS: BP 132/68; PULSE 64; RESP 16; TEMP 36.6; O2SAT 98; BMI 25.0
--- NOTE | 2022-12-02 00:03 | PC.NURSE ---
Pt not able to tolerate IV potassium at the rate it was running of 50ml/hr in the ED once up on the floor. Attempted to run at 25ml/hr with fluids, pt still unable to tolerate. scallop cutter machine provider contacted, ok to run at 10ml/hr if pt tolerates, per DNP not able to mix lidocaine with potassium on the floor per policy. Currently IV potassium running at 10ml/hr with fluids. Pt tolerating.
--- NOTE | 2022-12-02 02:36 | PC.NURSE ---
Pt unable to tolerate potassium IV infusion. 32mL infused. Pt declines to try oral potassium at this time due to recent episodes of nausea and vomiting. SAMY Monae notified.
[2022-12-02 04:00] VITALS: BP 112/70; PULSE 91; RESP 16; TEMP 36.6; O2SAT 100; BMI 25.0
--- NOTE | 2022-12-02 07:34 | HMH.PHAINT1 ---
Pharmacy Intervention Comments: home medication reconciliation completed using list from outpatient pharmacy and pt interview
[2022-12-02 08:00] VITALS: BP 120/66; PULSE 95; RESP 18; TEMP 36.7; O2SAT 98
[2022-12-02 08:01] LABS: Chloride 92 mmol/L (98-107); Sodium 135 mmol/L (136-145)
[2022-12-02 08:02] LABS: Basophils # 0.1 K/mm3 (0-0.2); Eosinophils # 0.2 K/mm3 (0.0-0.4); Monocytes # 0.9 K/mm3 (0.1-1.0)
[2022-12-02 08:04] LABS: Alanine Aminotransferase 50 U/L (12-78); Albumin/Globulin Ratio 1.4 (1.1-1.8); Alkaline Phosphatase 79 U/L (38-126); Anion Gap 14.4 mEq/L (5-15); Aspartate Amino Transferase 70 U/L (14-36); Bilirubin,Total 0.6 mg/dl (0.2-1.3); Blood Urea Nitrogen 22 mg/dl (7-17); Calcium 8.6 mg/dl (8.4-10.2); Carbon Dioxide 31 mmol/L (22.0-30.0); Creatinine Clearance Estimated 67 mL/min (50-200); Estimated Glomerular Filt Rate 59 ml/min (>60); GFR (African American) 72 ML/MIN (>60); Globulin 2.8 g/dL (1.3-3.2); Glucose 95 mg/dl (74-100); Magnesium 1.9 mg/dl (1.6-2.3); Total Protein,Serum 6.8 g/dl (6.3-8.2)
[2022-12-02 08:09] LABS: Basophils % 0.4 % (0.1-2.0); Eosinophils % 1.5 % (0.1-12.0); Hematocrit 40.2 % (37.0-47.0); Lymphocytes # 3.6 K/mm3 (0.7-4.5); Lymphocytes % 27.1 % (10-50); Mean Corpuscular HGB Conc 33.3 g/dL (31.8-35.4); Mean Corpuscular Hemoglobin 29.3 pg (27.0-31.2); Mean Corpuscular Volume 87.9 fl (81-99); Mean Platelet Volume 10.3 fl (7.4-10.4); Monocytes % 6.9 % (1.7-9.3); Neutrophils # 8.5 K/mm3 (1.8-7.8); Platelet Count 396 K/mm3 (142-424); Red Blood Count 4.57 M/mm3 (4.20-5.40); Red Cell Distribution Width 13.5 % (11.5-17.5); White Blood Count 13.3 K/mm3 (4.8-10.8)
[2022-12-02 08:11] LABS: Potassium 2.4 mmoL/L (3.5-5.1)
[2022-12-02 08:14] LABS: Hemoglobin 13.4 g/dL (12.2-16.2)
--- NOTE | 2022-12-02 17:26 | EXP.DC.SUM ---
General Admission date:: 12/01/22 Discharge date: 12/02/22 HPI HPI HPI: Ms. Elena is a 47-year-old female with a past medical history of Gastric Banding in 2008 who presents to [facility] due to continued nausea, vomiting and the inability to tolerate oral intake. She reports that she has lost 10 pounds in less than 1 week due to her symptoms. She has an appointment with her Surgeon in [place], [place] scheduled on 12/02, but due to continued inability to tolerate oral intake came into the ER. In the ER, the patient underwent an CT of the abdomen and pelvis that showed that she was status post gatric banding with partially visualized mid fluid in the distal esophagus. K was 2.5 and creatinine was 1.30. The patient will be admitted overnight with initial impression: Dehydration, Hypokalemia and HEIDI. In the ER, she received IV fluids and potassium replacement intravenously. Hospital Course Hospital Course Hospital Course: 47-year-old female who presents due to continued nausea, vomiting and the inability to tolerate oral intake following gastric banding, prior visits to the ER with same complaints, scheduled to see her Surgeon on 12/02. Patient feeling better. Potassium still not corrected however she really wants to see her surgeon as previous decrease in her lap band has resolved her symptoms. Discussed risks and benefits of discharge at this time. Patient would like to go see her surgeon for more definitive therapy. Medically stable. Problems addressed as follows: - Dehydration -HEIDI -Hypokalemia -Nausea and vomiting Patient admitted for fluid resuscitation and inability to tolerate oral intake. After IV fluid resuscitation, oral challenge performed, able to keep fluids down. Tolerated IV potassium. States she has not been taking her oral potassium at home consistently as she is supposed to. Tolerated dose of oral potassium this morning. Extensive discussion about her underlying cause which is her lap band. She has a scheduled appointment with her surgeon this afternoon at 2 PM. She would really like to make that appointment for definitive treatment. Will discharge patient in the care of her as she is hemodynamically stable and tolerating oral fluids at this time. Of note, had a leukocytosis on presentation, felt to be secondary to D marginalization/reactive. Improved without any antibiotics. No signs of infection. Exam Data for Last 24 hours Vital signs and Labs for Last 24 Hours: Temp Pulse Resp BP Pulse Ox 98.1 F 95 H 18 120/66 98 12/02/22 08:00 12/02/22 08:00 12/02/22 08:00 12/02/22 08:00 12/02/22 08:00 Laboratory Results - last 24 hr 12/01/22 14:15: Urine Color Yellow, Urine Appearance Clear, Urine pH 6.0, Ur Specific [place] 1.025, Urine Protein 2+, Urine Glucose (UA) Negative, Urine Ketones 2+, Urine Blood 3+, Urine Nitrate Negative, Urine Bilirubin 2+ A, Urine Urobilinogen 0.2, Ur Leukocyte Esterase Negative, Urine RBC Occasional, Urine WBC 10-20, Ur Squamous Epith Cells Tntc, Urine Bacteria 3+ 12/01/22 19:30: WBC 19.5 H, RBC 5.53 H, Hgb 16.4 H, Hct 47.8 H, MCV 86.5, MCH 29.8, MCHC 34.4, RDW 13.4, Plt Count 501 H, MPV 9.7, Neut % (Auto) 72.9, Lymph % (Auto) 19.1, Moody % (Auto) 5.6, Eos % (Auto) 2.0, Baso % (Auto) 0.4, Neut # (Auto) 14.2 H, Lymph # (Auto) 3.7, Moody # (Auto) 1.1 H, Eos # (Auto) 0.4, Baso # (Auto) 0.1, Total Counted 100, Neutrophils % (Manual) 81 H, Lymphocytes % (Manual) 12, Monocytes % (Manual) 5, Eosinophils % (Manual) 2, Platelet Estimate Normal, Hypochromasia 1+ 12/01/22 19:30: Sodium 135 L, Potassium 2.5 L*, Chloride 86 L, Carbon Dioxide 28, Anion Gap 23.5 H, BUN 29 H, Creatinine 1.30 H, Estimated Creat Clear 49, Estimated GFR 44 L, Est GFR ( Amer) 53 L, Glucose 137 H, Calcium 10.2, Total Bilirubin 0.9, AST 54 H, ALT 45, Alkaline Phosphatase 111, Total Protein 9.4 H, Albumin 5.1 H, Globulin 4.3 H, Albumin/Globulin Ratio 1.2, Lipase 76 12/01/22 19
--- NOTE | 2022-12-04 11:37 | CARE MANAGER ---
Contacted patient related to hospital discharge. She was unable to speak for very long, but states she is better and denies any questions or concerns. ALEM Yeboah
== END 2022-12-02 12:19 | disposition home or self-care (01) ==
LOC: ER 21:59 → 2ND 22:48
PROVIDERS: Emergency Medicine; Internal Medicine Adolescent Medicine; Nurse Practitioner Family; Admitting Provider Family Medicine; Emergency Provider Student in an Organized Health Care Education/Training Program; PCP Pediatrics; Visit Provider Family Medicine
DX: E87.6 Hypokalemia (principal); E86.0 Dehydration; N17.9 Acute kidney failure, unspecified; R11.2 Nausea with vomiting, unspecified; Z79.899 Other long term (current) drug therapy; F17.210 Nicotine dependence, cigarettes, uncomplicated; K95.09 Other complications of gastric band procedure
CPT/HCPCS: 36415; 74021; 74177; 80053; 81001; 83690; 83735; 85007; 85025; 87086; 93005; 99285; C9803; G0378; J0131; J2405; Q9967; U0003; U0005

== ENCOUNTER → 2022-12-25 23:11 | Outpatient (CLI) | payer BC, OTHER, SELFPAY ==
[2022-12-25 19:08] LABS: Uric Acid 3.4 mg/dl (2.5-6.2)
== END ==
PROVIDERS: PCP Nurse Practitioner Family; Visit Provider Nurse Practitioner Family
DX: M25.571 Pain in right ankle and joints of right foot (principal)
CPT/HCPCS: 84550

== ENCOUNTER 2023-03-11 13:27 | Outpatient (CLI) | payer BC, OTHER, SELFPAY ==
[2023-03-11 11:54] LABS: Alanine Aminotransferase 41 U/L (12-78); Albumin Level 4.1 g/dl (3.5-5.0); Albumin/Globulin Ratio 1.4 (1.1-1.8); Alkaline Phosphatase 93 U/L (38-126); Anion Gap 12.5 mEq/L (5-15); Aspartate Amino Transferase 111 U/L (14-36); Bilirubin,Total 0.5 mg/dl (0.2-1.3); Blood Urea Nitrogen 13 mg/dl (7-17); Calcium 9.8 mg/dl (8.4-10.2); Carbon Dioxide 38 mmol/L (22.0-30.0); Chloride 95 mmol/L (98-107); Estimated Glomerular Filt Rate 106 ml/min (>60); GFR (African American) 129 ML/MIN (>60); Glucose 85 mg/dl (74-100); Sodium 143 mmol/L (136-145); Total Protein,Serum 7.1 g/dl (6.3-8.2)
[2023-03-11 11:55] LABS: Basophils # 0.1 K/mm3 (0-0.2); Basophils % 0.5 % (0.1-2.0); Eosinophils # 0.4 K/mm3 (0.0-0.4); Eosinophils % 3.2 % (0.1-12.0); Hematocrit 44.3 % (37.0-47.0); Hemoglobin 14.5 g/dL (12.2-16.2); Lymphocytes # 2.5 K/mm3 (0.7-4.5); Lymphocytes % 22.2 % (10-50); Mean Corpuscular HGB Conc 32.8 g/dL (31.8-35.4); Mean Corpuscular Hemoglobin 28.7 pg (27.0-31.2); Mean Corpuscular Volume 87.6 fl (81-99); Mean Platelet Volume 9.4 fl (7.4-10.4); Monocytes # 0.4 K/mm3 (0.1-1.0); Neutrophils # 7.8 K/mm3 (1.8-7.8); Neutrophils % 70.1 % (37.0-80.0); Platelet Count 374 K/mm3 (142-424); Potassium 2.5 mmoL/L (3.5-5.1); Red Blood Count 5.06 M/mm3 (4.20-5.40); Red Cell Distribution Width 15.2 % (11.5-17.5); White Blood Count 11.1 K/mm3 (4.8-10.8)
[2023-03-11 11:59] LABS: C-Reactive Protein 4.9 mg/L (0-4)
[2023-03-11 12:11] LABS: T4 (Thyroxine) 10.6 ug/dl (5.53-11.0)
[2023-03-11 12:30] LABS: Erythrocyte Sedimentation Rate 10 mm/hr (0-20)
[2023-03-11 12:44] LABS: Vitamin B12 968 pg/mL (239-931)
[2023-03-11 14:15] VITALS: BP 114/78; PULSE 83; RESP 18; O2SAT 99
[2023-03-11 14:40] VITALS: BP 110/68; PULSE 84; RESP 18; O2SAT 99
[2023-03-11 15:12] VITALS: BP 114/72; PULSE 85
[2023-03-17 15:06] LABS: Lyme B. burgdorferi PCR Blood Negative (Negative)
== END 2023-03-11 15:13 | disposition home or self-care (01) ==
LOC: LAB.DROPOF 13:49 → INF 13:58
PROVIDERS: PCP Emergency Medicine; Visit Provider Emergency Medicine
DX: R53.1 Weakness (principal); E86.0 Dehydration; E87.6 Hypokalemia; K95.09 Other complications of gastric band procedure
CPT/HCPCS: 80053; 82607; 84436; 84443; 85025; 85651; 86140; 87476; 96365

== ENCOUNTER → 2023-03-16 12:40 | Outpatient (CLI) | payer BC, OTHER, SELFPAY ==
[2023-03-16 12:34] LABS: Anion Gap 14.3 mEq/L (5-15); Blood Urea Nitrogen 11 mg/dl (7-17); Carbon Dioxide 32 mmol/L (22.0-30.0); Chloride 97 mmol/L (98-107); Estimated Glomerular Filt Rate 106 ml/min (>60); GFR (African American) 129 ML/MIN (>60); Glucose 97 mg/dl (74-100); Sodium 141 mmol/L (136-145)
[2023-03-16 12:50] LABS: Potassium 2.3 mmoL/L (3.5-5.1)
== END ==
PROVIDERS: PCP Physician Assistant; Visit Provider Physician Assistant
DX: E87.6 Hypokalemia (principal); N39.0 Urinary tract infection, site not specified; B96.29 Other Escherichia coli [E. coli] as the cause of diseases classified elsewhere
CPT/HCPCS: 80048; 87086; 87088; 87186

== ENCOUNTER 2023-03-16 18:06 | Emergency (ER) | payer BC, OTHER, SELFPAY ==
[2023-03-16 18:22] VITALS: BP 135/92; PULSE 111; RESP 20; TEMP 37.1; O2SAT 97; BMI 20.5
[2023-03-16 18:30] VITALS: BP 114/78; PULSE 90; RESP 20; O2SAT 99
[2023-03-16 19:00] VITALS: BP 124/80; PULSE 91; O2SAT 99
--- NOTE | 2023-03-16 19:20 | PC.NURSE ---
at bedside. new orders noted. labs to be obtained.
[2023-03-16 19:25] LABS: Basophils % 0.3 % (0.1-2.0); Eosinophils # 0.2 K/mm3 (0.0-0.4); Eosinophils % 1.5 % (0.1-12.0); Hematocrit 40.8 % (37.0-47.0); Hemoglobin 13.8 g/dL (12.2-16.2); Lymphocytes # 3.3 K/mm3 (0.7-4.5); Lymphocytes % 23.7 % (10-50); Mean Corpuscular HGB Conc 33.7 g/dL (31.8-35.4); Mean Corpuscular Hemoglobin 29.8 pg (27.0-31.2); Mean Corpuscular Volume 88.5 fl (81-99); Mean Platelet Volume 10.2 fl (7.4-10.4); Monocytes # 0.7 K/mm3 (0.1-1.0); Monocytes % 5.3 % (1.7-9.3); Neutrophils # 9.5 K/mm3 (1.8-7.8); Neutrophils % 69.2 % (37.0-80.0); Platelet Count 343 K/mm3 (142-424); Red Blood Count 4.61 M/mm3 (4.20-5.40); Red Cell Distribution Width 15.2 % (11.5-17.5); White Blood Count 13.7 K/mm3 (4.8-10.8)
[2023-03-16 19:30] VITALS: BP 138/95; PULSE 90; O2SAT 99
[2023-03-16 19:34] LABS: Alanine Aminotransferase 51 U/L (12-78); Albumin/Globulin Ratio 1.4 (1.1-1.8); Alkaline Phosphatase 85 U/L (38-126); Aspartate Amino Transferase 84 U/L (14-36); Bilirubin,Total 0.5 mg/dl (0.2-1.3); Blood Urea Nitrogen 11 mg/dl (7-17); Calcium 8.8 mg/dl (8.4-10.2); Carbon Dioxide 29 mmol/L (22.0-30.0); Chloride 97 mmol/L (98-107); Creatinine Clearance Estimated 94 mL/min (50-200); Estimated Glomerular Filt Rate 106 ml/min (>60); GFR (African American) 129 ML/MIN (>60); Globulin 2.9 g/dL (1.3-3.2); Glucose 86 mg/dl (74-100); Sodium 140 mmol/L (136-145); Total Protein,Serum 6.9 g/dl (6.3-8.2)
--- NOTE | 2023-03-16 19:34 | HMH.EDGENADL ---
Discharge Plan Disposition Patient Disposition: Home, Self-Care Condition: Good Prescriptions Prescriptions: New cefdinir 300 mg capsule 300 mg PO BID 5 Days Qty: 10 0RF No Action ibuprofen 800 mg tablet 800 mg PO TIDP PRN (Reason: migraines) Qty: 90 0RF cyclobenzaprine 10 mg tablet 10 mg PO TIDP PRN (Reason: Muscle Spasm) Qty: 90 0RF Ubrelvy 50 mg tablet 50 mg PO ONCE PRN (Reason: migraine headache) Qty: 10 1RF hydrochlorothiazide 12.5 mg capsule 12.5 mg PO DAILY fluticasone propionate 50 mcg/actuation spray,suspension 1 spray INTRANASAL DAILY sennosides-docusate sodium [Stool Softener-Stimulant Laxat] 8.6-50 mg Tablet 1 tab PO BID PRN (Reason: Constipation) 30 Days Qty: 60 0RF potassium chloride 20 mEq tablet,ER particles/crystals 20 meq PO BID polyethylene glycol 3350 [Miralax] 17 gram/dose powder 17 g PO DAILY escitalopram oxalate 10 mg tablet 10 mg PO DAILY Referrals Follow up/Referrals: Blade Light MD [Primary Care Provider] - See instructions Clinical Impressions Clinical Impression: Hypokalemia Acute cystitis Qualifiers: Hematuria presence: without hematuria Qualified Code(s): N30.00 - Acute cystitis without hematuria Discharge ED Provider: Jairo Zapata Adult HPI General Chief complaint: Recheck/Abnormal Lab/Rx Stated complaint: needs potassuim Time Seen by Provider: 03/16/23 19:34 Mode of Arrival: Ambulatory Source of Information: Patient Limitations: No Limitations Description of Symptoms (Recalled from ER Triage Doc. by RN): pt to ed c/o abnormal labs. pt states she has been followed by pcp for low potassium. pt reports having blood work this morning and was called by pcp this evening to go to the ed for IV potassium. History of Present Illness HPI narrative: Patient presents for evaluation of dysuria and frequency, right-sided flank pain in the setting of multiple recent diagnoses of acute cystitis, patient reports chronic history of hypokalemia but is currently being managed and worked up on outpatient basis. No recent changes in medications or new medications. Last course of antibiotics was over 1 month ago. No fevers or chills or nausea or vomiting. No pain elsewhere. No bloody stools or diarrhea. No exacerbating or alleviating factors. Patient presents as she was instructed to be evaluated for potassium recheck. She also had urinalysis drawn earlier today that she has not seen the results of. No new complaints since then. Symptoms were gradual in onset starting several days ago, constant, stable course. Related Data Home Medications Medication Instructions Recorded Confirmed fluticasone propionate 50 1 spray intranasal DAILY Allergy 12/01/22 03/17/23 mcg/actuation nasal symptoms spray,suspension hydrochlorothiazide 12.5 mg capsule 12.5 mg PO DAILY diuretic 12/01/22 03/17/23 escitalopram oxalate 10 mg tablet 10 mg PO DAILY Depression 03/11/23 03/17/23 polyethylene glycol 3350 17 17 g PO DAILY constipation 03/11/23 03/17/23 gram/dose oral powder (Miralax) potassium chloride 20 mEq 20 meq PO BID Diet Supplement 03/11/23 03/17/23 tablet,extended release(part/cryst) Previous Rx's Medication Instructions Recorded sennosides 8.6 mg-docusate sodium 1 tab PO BID PRN Constipation 30 12/02/22 50 mg tablet (Stool days #60 tabs Softener-Stimulant Laxative) cyclobenzaprine 10 mg tablet 10 mg PO TIDP PRN Muscle Spasm #90 03/11/23 tabs ibuprofen 800 mg tablet 800 mg PO TIDP PRN migraines #90 03/11/23 tabs ubrogepant 50 mg tablet (Ubrelvy) 50 mg PO ONCE PRN migraine 03/13/23 headache #10 tabs cefdinir 300 mg capsule 300 mg PO BID 5 days #10 caps 03/16/23 Allergies Allergy/AdvReac Type Severity Reaction Status Date / Time No Known Allergies Allergy Verified 03/17/23 08:38 [facility] Disclaimer: The information contained in this section may have been updated after the patient was se
--- NOTE | 2023-03-16 19:45 | PC.NURSE ---
Pt updated on POC. Pt provided with pillow, drink and crackers.
[2023-03-16 20:00] VITALS: BP 141/91; PULSE 84; O2SAT 99
[2023-03-16 20:02] LABS: Anion Gap 16.4 mEq/L (5-15); Potassium 2.4 mmoL/L (3.5-5.1)
--- NOTE | 2023-03-16 20:04 | PC.NURSE ---
Argelia from lab called with a critical potassium level for the patient. Patient name and verified x2. Value repeated back. MD george.
[2023-03-16 20:12] LABS: Magnesium 1.9 mg/dl (1.6-2.3)
--- NOTE | 2023-03-16 20:31 | ECG_ITS ---
APPROVED REPORT Exam: Resting ECG HR:80 bpm ECG Measurements Heart Rate 80 AXES SD 163 P 76 QRSd 93 QRS 21 QT 390 T -50 QTc 426 Conclusion SINUS RHYTHM LOW QRS VOLTAGE IN PRECORDIAL LEADS [QRS DEFLECTION < 1.0 mV IN CHEST LEADS] ST DEVIATION AND MODERATE T-WAVE ABNORMALITY, CONSIDER INFERIOR ISCHEMIA [-0.1+ mV T-WAVE IN II/aVF] ABNORMAL ECG UNCONFIRMED REPORT Electronically signed by : Saul Weeks MD 03/18/2023 17:35:52
[2023-03-16 21:01] VITALS: BP 116/82; PULSE 82; RESP 18; TEMP 36.9
== END 2023-03-16 21:05 | disposition home or self-care (01) ==
PROVIDERS: Emergency Provider Emergency Medicine; PCP Emergency Medicine
DX: E87.6 Hypokalemia (principal); N30.00 Acute cystitis without hematuria
CPT/HCPCS: 80053; 83735; 85025; 93005; 93041; 99285

== ENCOUNTER 2023-03-17 10:18 | Outpatient (CLI) | payer BC, OTHER, SELFPAY ==
[2023-03-17] VITALS (11 sets, daily range): BP systolic 92–135; BP diastolic 58–81; PULSE 85–102; RESP 18; O2SAT 97–99
[2023-03-17 11:26] LABS: Alanine Aminotransferase 49 U/L (12-78); Albumin Level 3.9 g/dl (3.5-5.0); Alkaline Phosphatase 89 U/L (38-126); Anion Gap 13.8 mEq/L (5-15); Aspartate Amino Transferase 69 U/L (14-36); Bilirubin,Indirect 0.5 mg/dL (0.0-0.9); Bilirubin,Total 0.5 mg/dl (0.2-1.3); Bilirubin,Unconjugated 0.6 mg/dL (0.0-1.1); Blood Urea Nitrogen 9 mg/dl (7-17); Calcium 8.7 mg/dl (8.4-10.2); Carbon Dioxide 34 mmol/L (22.0-30.0); Chloride 96 mmol/L (98-107); Creatine Kinase 341 U/L (30-135); Creatinine Clearance Estimated 92 mL/min (50-200); Estimated Glomerular Filt Rate 106 ml/min (>60); GFR (African American) 129 ML/MIN (>60); Gamma Glutamyl Transpeptidase 17 U/L (12-43); Glucose 85 mg/dl (74-100); Magnesium 1.9 mg/dl (1.6-2.3); Sodium 142 mmol/L (136-145); Total Protein,Serum 7.1 g/dl (6.3-8.2)
--- NOTE | 2023-03-17 11:30 | PC.NURSE ---
1130-notified jerri banks about pt's headache,give pt tylenol 500mg po once.
[2023-03-17 11:50] LABS: Potassium 1.8 mmoL/L (3.5-5.1)
--- NOTE | 2023-03-17 11:53 | PC.NURSE ---
1150- Chinyere Fernandez from lab called critical potassium level of 1.8 to this RN. pt name, and lab result verified and read back. WILSON Ruiz notified and awaiting additional orders at this time. pt currently receiving K+ infusion.
[2023-03-17 11:55] LABS: Thyroid Stimulating Hormone 0.64 uIU/mL (0.465-4.68)
--- NOTE | 2023-03-17 12:00 | PC.NURSE ---
1200-notified jerri banks with lab results;continue with current treatment repeat potassium level after infusion.
--- NOTE | 2023-03-17 12:30 | PC.NURSE ---
1230-jerri banks here to talk to patient.
--- NOTE | 2023-03-17 13:20 | PC.NURSE ---
1320-collected labs for post infusion repeat potassium.
--- NOTE | 2023-03-17 14:20 | PC.NURSE ---
1420-Chinyere Fernandez called rn with critical lab value potassium 2.0. RN repeated and verified pt name,, and lab value. RN notified jerri banks with lab value; no new orders just have patient take oral meds like they discussed and come back to office on 03/19.
[2023-03-19 12:41] LABS: Peripheral Smear Review Scanned Result
[2023-03-19 18:19] LABS: Adrenocorticotropic Hormone 7.4 pg/mL (7.2-63.3)
[2023-03-26 11:09] LABS: Antinuclear Antibodies (ANA) Negative
== END 2023-03-17 14:30 | disposition home or self-care (01) ==
LOC: INF 10:19
PROVIDERS: PCP Emergency Medicine; Visit Provider Physician Assistant
DX: E87.6 Hypokalemia (principal)
CPT/HCPCS: 80048; 80076; 82024; 82085; 82088; 82533; 82550; 82977; 83735; 84132; 84244; 84443; 86038; 96360; 96361

== ENCOUNTER → 2023-03-18 09:00 | Outpatient (CLI) | payer BC, OTHER, SELFPAY ==
[2023-03-18 10:25] LABS: Alanine Aminotransferase 41 U/L (12-78); Albumin Level 3.6 g/dl (3.5-5.0); Albumin/Globulin Ratio 1.3 (1.1-1.8); Alkaline Phosphatase 71 U/L (38-126); Anion Gap 9.4 mEq/L (5-15); Aspartate Amino Transferase 50 U/L (14-36); Bilirubin,Total 0.3 mg/dl (0.2-1.3); Blood Urea Nitrogen 13 mg/dl (7-17); Carbon Dioxide 36 mmol/L (22.0-30.0); Chloride 100 mmol/L (98-107); Estimated Glomerular Filt Rate 106 ml/min (>60); GFR (African American) 129 ML/MIN (>60); Globulin 2.8 g/dL (1.3-3.2); Glucose 93 mg/dl (74-100); Sodium 143 mmol/L (136-145); Total Protein,Serum 6.4 g/dl (6.3-8.2)
[2023-03-18 10:33] LABS: Potassium 2.4 mmoL/L (3.5-5.1)
[2023-03-18 14:00] LABS: Creatinine,Urine Random 295 mg/dL (Not Estab.)
[2023-03-23 21:08] LABS: Renin Activity, Plasma 1.009 ng/mL/hr (0.167-5.380)
== END ==
PROVIDERS: PCP Emergency Medicine; Visit Provider Nurse Practitioner Family
DX: E87.6 Hypokalemia (principal)
CPT/HCPCS: 36415; 80053; 82570; 84155; 84244

== ENCOUNTER → 2023-04-01 15:46 | Outpatient (CLI) | payer BC, SELFPAY ==
[2023-04-01 15:19] LABS: Anion Gap 19.3 mEq/L (5-15); Blood Urea Nitrogen 12 mg/dl (7-17); Calcium 9.9 mg/dl (8.4-10.2); Carbon Dioxide 21 mmol/L (22.0-30.0); Chloride 103 mmol/L (98-107); Estimated Glomerular Filt Rate 40 ml/min (>60); GFR (African American) 48 ML/MIN (>60); Glucose 81 mg/dl (74-100); Potassium 4.3 mmoL/L (3.5-5.1); Sodium 139 mmol/L (136-145)
== END ==
PROVIDERS: PCP Emergency Medicine; Visit Provider Emergency Medicine
DX: E87.6 Hypokalemia (principal)
CPT/HCPCS: 80048

== ENCOUNTER → 2023-04-07 15:29 | Outpatient (CLI) | payer BC, OTHER, SELFPAY ==
[2023-04-07 17:45] LABS: Chloride 101 mmol/L (98-107); Potassium 4.9 mmoL/L (3.5-5.1); Sodium 137 mmol/L (136-145)
[2023-04-07 17:48] LABS: Anion Gap 15.9 mEq/L (5-15); Blood Urea Nitrogen 17 mg/dl (7-17); Carbon Dioxide 25 mmol/L (22.0-30.0); Estimated Glomerular Filt Rate 53 ml/min (>60); GFR (African American) 64 ML/MIN (>60); Glucose 66 mg/dl (74-100)
== END ==
PROVIDERS: PCP Physician Assistant; Visit Provider Physician Assistant
DX: E87.6 Hypokalemia (principal)
CPT/HCPCS: 36415; 80048

== ENCOUNTER 2023-04-09 09:58 | Emergency (ER) | payer BC, OTHER, SELFPAY ==
[2023-04-09] VITALS (9 sets, daily range): BP systolic 106–130; BP diastolic 75–92; PULSE 85–118; RESP 16–17; TEMP 36.8–36.9; O2SAT 97–100
[2023-04-09 10:13] LABS: Microscopic, Urine URINE MICROSCOPIC (MICROSCOPIC)
[2023-04-09 10:17] LABS: Appearance,Urine CLEAR (Clear); Bilirubin,Urine Negative (Negative); Blood, Urine TRACE-I (Negative); Color,Urine YELLOW (Yellow); Glucose,Urine (UA) Negative (Negative); Ketones,Urine Negative (Negative); Leukocyte Esterase,Urine Negative (Negative); Nitrate,Urine Negative (Negative); Protein,Urine Negative (Negative); Urobilinogen,Urine 0.2 EU/dl (0.2)
[2023-04-09 10:30] LABS: WBC,Urine Occasional #/hpf (0-3)
--- NOTE | 2023-04-09 10:49 | CT_ITS ---
FINAL REPORT TECHNIQUE: After the administration of oral and intravenous contrast, axial images were obtained through the abdomen and pelvis by computed tomography. The study was performed with techniques to keep radiation dose as low as reasonably achievable, (ALARA). Individual dose reduction techniques using automated exposure control or adjustment of mA and/or kV according to the patient's size were employed. CLINICAL HISTORY: LLQ pain 75 ml isovue 370 given COMPARISON: 12/01/2022 FINDINGS: Abdomen: There is wall thickening of the distal esophagus with fluid in the distal esophagus, likely inflammatory. The lung bases are clear. The liver is normal in size and attenuation. The spleen is unremarkable. Gastric lap band is present. The adrenals are normal. The pancreas is unremarkable. The kidneys enhance appropriately. The aorta is normal in caliber. There is no free fluid or adenopathy. Pelvis: The appendix is not identified. There is a moderate to large amount of stool throughout the colon. There are multiple fluid-filled small bowel loops which are nonspecific, could represent enteritis. There is wall thickening of the descending and sigmoid colon worrisome for colitis. The urinary bladder is unremarkable. There is no free fluid. There is a small amount of pelvic ascites. IMPRESSION: Findings worrisome for colitis. Multiple fluid-filled small bowel loops, could represent enteritis. Pelvic ascites. Reviewed, Interpreted and Dictated by Sebastian Moses III, MD Transcribed by Cheryl Lima Authenticated and [facility]
[2023-04-09 10:57] LABS: Basophils # 0.1 K/mm3 (0-0.2); Basophils % 0.3 % (0.1-2.0); Eosinophils # 0.3 K/mm3 (0.0-0.4); Eosinophils % 1.7 % (0.1-12.0); Hematocrit 42.1 % (37.0-47.0); Hemoglobin 13.6 g/dL (12.2-16.2); Lymphocytes # 2.5 K/mm3 (0.7-4.5); Lymphocytes % 12.9 % (10-50); Mean Corpuscular HGB Conc 32.4 g/dL (31.8-35.4); Mean Corpuscular Hemoglobin 29.4 pg (27.0-31.2); Mean Corpuscular Volume 90.8 fl (81-99); Mean Platelet Volume 9.1 fl (7.4-10.4); Monocytes # 0.9 K/mm3 (0.1-1.0); Monocytes % 4.9 % (1.7-9.3); Neutrophils # 15.5 K/mm3 (1.8-7.8); Neutrophils % 80.3 % (37.0-80.0); Platelet Count 441 K/mm3 (142-424); Red Blood Count 4.63 M/mm3 (4.20-5.40); Red Cell Distribution Width 14.4 % (11.5-17.5); White Blood Count 19.3 K/mm3 (4.8-10.8)
[2023-04-09 10:59] LABS: Chloride 103 mmol/L (98-107); MANUAL DIFFERENTIAL MANUAL DIFFERENTIAL (MANUAL DIFF); Potassium 4.2 mmoL/L (3.5-5.1); Sodium 137 mmol/L (136-145)
[2023-04-09 11:01] LABS: Blood Urea Nitrogen 13 mg/dl (7-17); Creatinine Clearance Estimated 55 mL/min (50-200); Estimated Glomerular Filt Rate 59 ml/min (>60); GFR (African American) 71 ML/MIN (>60)
[2023-04-09 11:02] LABS: Alanine Aminotransferase 29 U/L (12-78); Albumin Level 4.1 g/dl (3.5-5.0); Albumin/Globulin Ratio 1.2 (1.1-1.8); Alkaline Phosphatase 111 U/L (38-126); Anion Gap 15.2 mEq/L (5-15); Aspartate Amino Transferase 32 U/L (14-36); Bilirubin,Total 0.4 mg/dl (0.2-1.3); Calcium 10.2 mg/dl (8.4-10.2); Carbon Dioxide 23 mmol/L (22.0-30.0); Globulin 3.5 g/dL (1.3-3.2); Glucose 92 mg/dl (74-100); Lipase 39 U/L (23-300); Total Protein,Serum 7.6 g/dl (6.3-8.2)
[2023-04-09 11:05] LABS: Lymphocytes % 14 % (10-50); Monocytes % 3 % (2-9); Neutrophils % 83 % (42-76); Platelet Estimate Slight Increase; RBC Morphology Normal; Total Cells Counted 100
[2023-04-09 11:43] LABS: HCG Qualitative, Serum Negative (Negative)
--- NOTE | 2023-04-09 11:57 | PC.NURSE ---
pt back from ct
--- NOTE | 2023-04-09 12:02 | HMH.EDGENADL ---
Discharge Plan Disposition Patient Disposition: Home, Self-Care Condition: Good Prescriptions Prescriptions: New hydrocodone-acetaminophen 5-325 mg tablet 1 tab PO Q8H PRN (Reason: pain) Qty: 12 0RF ondansetron 4 mg tablet,disintegrating 4 mg PO Q8H PRN (Reason: nausea and vomiting) 4 Days Qty: 12 0RF naproxen 500 mg tablet 500 mg PO Q8H PRN (Reason: pain) Qty: 20 0RF No Action ibuprofen 800 mg tablet 800 mg PO TIDP PRN (Reason: migraines) Qty: 90 0RF cyclobenzaprine 10 mg tablet 10 mg PO TIDP PRN (Reason: Muscle Spasm) Qty: 90 0RF famotidine 20 mg tablet 20 mg PO BID ondansetron HCl 4 mg tablet 4 mg PO Ubrelvy 50 mg tablet 50 mg PO ONCE PRN (Reason: migraine headache) Qty: 10 1RF Ubrelvy 100 mg tablet 100 mg PO ONCE PRN (Reason: migraine headache) Qty: 16 0RF hydrochlorothiazide 12.5 mg capsule 12.5 mg PO DAILY fluticasone propionate 50 mcg/actuation spray,suspension 1 spray INTRANASAL DAILY sennosides-docusate sodium [Stool Softener-Stimulant Laxat] 8.6-50 mg Tablet 1 tab PO BID PRN (Reason: Constipation) 30 Days Qty: 60 0RF potassium chloride 20 mEq tablet,ER particles/crystals 20 meq PO BID polyethylene glycol 3350 [Miralax] 17 gram/dose powder 17 g PO DAILY escitalopram oxalate 10 mg tablet 10 mg PO DAILY Referrals Follow up/Referrals: Blade Light MD [Primary Care Provider] - See instructions Activity Restrictions/Add. Instructions Additional Instructions/Restrictions: You were evaluated in the emergency department today and diagnosed with colitis. 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 Make sure that you are staying hydrated. Follow-up with your primary care provider over the next 3 days to ensure that you are doing well. Eat a bland diet until your symptoms have resolved. Clinical Impressions Clinical Impression: Colitis Instructions Patient Instructions: DI for Acute Abdominal Pain, DI for Colitis Discharge ED Provider: Perla Gaming General Adult HPI General Chief complaint: Abdominal Pain Stated complaint: lower left side of abd down groin area Time Seen by Provider: 04/09/23 10:34 Mode of Arrival: Ambulatory Source of Information: Patient Limitations: No Limitations Description of Symptoms (Recalled from ER Triage Doc. by RN): Pt arrives via private vehicle with c/o left lower abdominal pain that radiates into her left groin. Pain began at approx 0400 and woke her up. Pt states that she has a history of ovarian cysts but her left ovary was removed in October due to a large cyst. Does report benign cyst on cervix. Pt also c/o nausea. Last bm yesterday. History of Present Illness HPI narrative: This patient is a 48-year-old female who reports a history of IBS, migraines, and left oophorectomy in October for ovarian cyst presenting to the emergency department for evaluation with concern for left lower quadrant abdominal pain. She states that the pain woke her up around 4:00 this morning. She states that she is having nausea because of the pain. It is so severe that she cannot stand up. It is sharp and constant in the left lower quadrant but it becomes intermittently worse. She denies any other concerns, such as fevers, chills, changes to bowel movements, vomiting, dysuria, abnormal vaginal discharge, or other concerns. She does note that she has had nausea secondary to the pain. She reports her primary care provider told her to come in for evaluation. Related Data Home Medications Medication Instructions Recorded Confirmed fluticasone propionate 50 1 spray intranasal DAILY Allergy 12/01/22 04/01/23 mcg/actuation nasal symptoms spray,suspension hydrochlorothiazide 12.5 mg capsule 12.5 mg PO DAILY diuretic 12/01/22 04/01/23 escitalopram oxalate 10 mg tablet 10 mg PO DAILY Depression 03/11/23 04/01/23 polyethylene glycol 3350 17 17 g PO DA
--- NOTE | 2023-04-09 13:37 | PC.NURSE ---
DANISH Ott rounded on patient, no needs. Call light within reach
--- NOTE | 2023-04-09 13:47 | PC.NURSE ---
pt doing a PO challenge with no problems
== END 2023-04-09 14:04 | disposition home or self-care (01) ==
PROVIDERS: Emergency Provider Emergency Medicine; PCP Emergency Medicine
DX: R10.32 Left lower quadrant pain (principal); K52.9 Noninfective gastroenteritis and colitis, unspecified; F41.9 Anxiety disorder, unspecified
CPT/HCPCS: 74177; 80053; 81001; 83690; 84703; 85007; 85025; 96361; 96374; 96375; 99285; J0131; Q9967

== ENCOUNTER → 2023-04-15 08:21 | Outpatient (CLI) | payer BC, OTHER, SELFPAY ==
[2023-03-27 19:02] LABS: Anion Gap 19.5 mEq/L (5-15); Blood Urea Nitrogen 11 mg/dl (7-17); Calcium 10.1 mg/dl (8.4-10.2); Carbon Dioxide 25 mmol/L (22.0-30.0); Chloride 97 mmol/L (98-107); Estimated Glomerular Filt Rate 67 ml/min (>60); GFR (African American) 81 ML/MIN (>60); Glucose 75 mg/dl (74-100); Potassium 5.5 mmoL/L (3.5-5.1); Sodium 136 mmol/L (136-145)
== END ==
PROVIDERS: PCP Emergency Medicine; Visit Provider Emergency Medicine
DX: E87.6 Hypokalemia (principal)
CPT/HCPCS: 80048

== ENCOUNTER → 2023-05-20 16:32 | Outpatient (CLI) | payer BC, OTHER, SELFPAY ==
[2023-05-20 18:14] LABS: Blood Urea Nitrogen 15 mg/dl (7-17); Calcium 9.5 mg/dl (8.4-10.2); Carbon Dioxide 25 mmol/L (22.0-30.0); Chloride 101 mmol/L (98-107); Estimated Glomerular Filt Rate 89 ml/min (>60); GFR (African American) 108 ML/MIN (>60); Glucose 70 mg/dl (74-100); Sodium 140 mmol/L (136-145)
== END ==
PROVIDERS: PCP Emergency Medicine; Visit Provider Physician Assistant
DX: E87.6 Hypokalemia (principal)
CPT/HCPCS: 36415; 80048

== ENCOUNTER 2023-10-30 13:38 | Outpatient (CLI) | payer BC, OTHER, SELFPAY ==
[2023-10-30 13:59] LABS: Basophils # 0.1 K/mm3 (0-0.2); Basophils % 1.2 % (0.1-2.0); Eosinophils # 0.2 K/mm3 (0.0-0.4); Eosinophils % 1.6 % (0.1-12.0); Hematocrit 45.8 % (37.0-47.0); Hemoglobin 14.9 g/dL (12.2-16.2); Lymphocytes % 29.7 % (10-50); Mean Corpuscular HGB Conc 32.6 g/dL (31.8-35.4); Mean Corpuscular Hemoglobin 30.4 pg (27.0-31.2); Mean Corpuscular Volume 93.3 fl (81-99); Monocytes # 0.5 K/mm3 (0.1-1.0); Monocytes % 4.7 % (1.7-9.3); Neutrophils # 6.4 K/mm3 (1.8-7.8); Neutrophils % 62.8 % (37.0-80.0); Platelet Count 374 K/mm3 (142-424); Red Cell Distribution Width 13.5 % (11.5-17.5); White Blood Count 10.1 K/mm3 (4.8-10.8)
[2023-10-30 14:00] LABS: Alanine Aminotransferase 17 U/L (12-78); Albumin Level 4.6 g/dl (3.5-5.0); Albumin/Globulin Ratio 1.7 (1.1-1.8); Alkaline Phosphatase 97 U/L (38-126); Aspartate Amino Transferase 32 U/L (14-36); Bilirubin,Total 0.5 mg/dl (0.2-1.3); Blood Urea Nitrogen 16 mg/dl (7-17); Calcium 10.9 mg/dl (8.4-10.2); Carbon Dioxide 33 mmol/L (22.0-30.0); Chloride 99 mmol/L (98-107); Chol/HDL Ratio 4.1 (1-3.5); Cholesterol 188 mg/dl (140-200); Estimated Glomerular Filt Rate 67 ml/min (>60); GFR (African American) 81 ML/MIN (>60); Globulin 2.7 g/dL (1.3-3.2); Glucose 90 mg/dl (74-100); HDL Cholesterol 46 mg/dl (40-60); Sodium 139 mmol/L (136-145); Total Protein,Serum 7.3 g/dl (6.3-8.2); Triglycerides 116 mg/dl (30-150); VLDL Cholesterol 23 mg/dL (0-40)
[2023-10-30 14:12] LABS: Direct LDL Cholesterol 99.02 mg/dL (100-129)
== END 2023-10-30 23:59 ==
LOC: LAB.DROPOF 13:38
PROVIDERS: PCP Family Medicine; Visit Provider Family Medicine
DX: E87.6 Hypokalemia (principal); R53.83 Other fatigue
CPT/HCPCS: 80053; 80061; 85025

== ENCOUNTER 2023-11-17 16:54 | Outpatient (CLI) | payer BC, OTHER, SELFPAY ==
[2023-11-17 19:03] LABS: Chloride 106 mmol/L (98-107); Sodium 138 mmol/L (136-145)
[2023-11-17 19:04] LABS: Potassium 3.6 mmoL/L (3.5-5.1)
[2023-11-17 19:07] LABS: Anion Gap 11.6 mEq/L (5-15); Blood Urea Nitrogen 18 mg/dl (7-17); Carbon Dioxide 24 mmol/L (22.0-30.0); Estimated Glomerular Filt Rate 76 ml/min (>60); GFR (African American) 92 ML/MIN (>60); Glucose 82 mg/dl (74-100)
== END 2023-11-17 23:59 ==
LOC: LAB.DROPOF 11-18 16:54
PROVIDERS: PCP Physician Assistant; Visit Provider Physician Assistant
DX: E87.6 Hypokalemia (principal)
CPT/HCPCS: 80048

== ENCOUNTER 2024-12-19 10:18 | Outpatient (CLI) | payer BC, OTHER, SELFPAY ==
[2024-12-19 18:28] LABS: Basophils # 0.1 K/mm3 (0-0.2); Basophils % 0.5 % (0.1-2.0); Eosinophils # 0.2 Kmm3 (0.0-0.4); Eosinophils % 1.9 % (0.1-12.0); Hematocrit 36.9 % (37.0-47.0); Hemoglobin 12.2 g/dL (12.2-16.2); Immature Granulocytes # 0.03 10^3uL; Immature Granulocytes % 0.3 %; Lymphocytes # 2.4 K/mm3 (0.7-4.5); Lymphocytes % 26.7 % (10-50); Mean Corpuscular HGB Conc 33.1 g/dL (31.8-35.4); Mean Corpuscular Volume 90.9 fl (81-99); Mean Platelet Volume 12.4 fl (7.4-10.4); Monocytes # 0.6 K/mm3 (0.1-1.0); Monocytes % 6.5 % (1.7-9.3); Neutrophils # 5.8 K/mm3 (1.8-7.8); Neutrophils % 64.1 % (37.0-80.0); Nucleated Red Blood Cells # 0 10^3/uL; Nucleated Red Blood Cells % 0 %; Platelet Count 288 K/mm3 (142-424); Red Blood Count 4.06 M/mm3 (4.20-5.40); Red Cell Distribution Width 13.9 % (11.5-17.5); Red Cell Distribution Width-SD 46.7 fL; White Blood Count 9.1 K/mm3 (4.8-10.8)
[2024-12-19 20:32] LABS: Alanine Aminotransferase 13 U/L (12-78); Albumin Level 4.5 g/dl (3.5-5.0); Albumin/Globulin Ratio 1.8 (1.1-1.8); Alkaline Phosphatase 58 U/L (38-126); Anion Gap 13.6 mEq/L (5-15); Aspartate Amino Transferase 33 U/L (14-36); Bilirubin,Total 0.6 mg/dl (0.2-1.3); Blood Urea Nitrogen 19 mg/dl (7-17); Calcium 9.4 mg/dl (8.4-10.2); Carbon Dioxide 21 mmol/L (22.0-30.0); Chloride 106 mmol/L (98-107); Chol/HDL Ratio 3.5 (1-3.5); Cholesterol 192 mg/dl (140-200); Estimated Glomerular Filt Rate 89 ml/min (>60); GFR (African American) 107 ML/MIN (>60); Globulin 2.5 g/dL (1.3-3.2); Glucose 84 mg/dl (74-100); HDL Cholesterol 55 mg/dl (40-60); Potassium 4.6 mmoL/L (3.5-5.1); Sodium 136 mmol/L (136-145); Triglycerides 105 mg/dl (30-150); VLDL Cholesterol 21 mg/dL (0-40)
[2024-12-19 20:35] LABS: 25-OH Vitamin D, Total 22.7 ng/mL (30-100)
[2024-12-19 20:42] LABS: Direct LDL Cholesterol 117.37 mg/dL (100-129)
[2024-12-19 20:49] LABS: Free T4 (Free Thyroxine) 1.31 ng/dl (0.78-2.19)
[2024-12-19 21:06] LABS: Thyroid Stimulating Hormone 0.73 uIU/mL (0.465-4.68)
[2024-12-19 21:25] LABS: Vitamin B12 875 pg/mL (239-931)
== END 2024-12-19 23:59 | disposition home or self-care (01) ==
LOC: LAB.DROPOF 20:26
PROVIDERS: PCP Family Medicine; Visit Provider Family Medicine
DX: G62.9 Polyneuropathy, unspecified (principal); E55.9 Vitamin D deficiency, unspecified
CPT/HCPCS: 80053; 80061; 82306; 82607; 82746; 84439; 84443; 85025; 86140

== ENCOUNTER 2025-06-09 09:57 | Outpatient (CLI) | payer BC, OTHER, SELFPAY ==
--- OUTSIDE RECORDS SUMMARY | 2025-06-09 10:01 | XMS_ITS | Clinical Summary ---
Author Organization [facility] Address [address], [address] [place] [address] Care Team Providers Care Automatic Driller And Reamer Name Role Phone Blu Rodriguez MD Primary Care Provider [phone] Allergies Active Allergy Reactions Criticality Noted Date Comments Cephalexin 12/01/2014 Penicillins 12/01/2014 Medications cyclobenzaprine (FLEXERIL) 10 MG tablet Take 10 mg by mouth daily 07/21/2014 Active SUMAtriptan (IMITREX) 100 MG tablet 1/2-1 qd prn 07/21/2014 Active ibuprofen (ADVIL;MOTRIN) 800 MG tablet Take 800 mg by mouth 07/21/2014 Active Active Problems Problem Noted Date Diagnosed Date Melanoma of scalp 12/01/2014 Family History Medical History Relation Name Comments Cancer Father Hearing Loss Father High Blood Pressure Father High Cholesterol Father Arthritis Maternal Grandfather Cancer Maternal Grandfather Stroke Maternal Grandfather Hearing Loss Maternal Grandmother Arthritis Mother Hearing Loss Mother Heart Disease Paternal Grandfather High Blood Pressure Paternal Grandfather Heart Disease Paternal Grandmother High Blood Pressure Paternal Grandmother Relation Name Status Comments Father Maternal Grandfather Maternal Grandmother Mother Paternal Grandfather Paternal Grandmother Social History Tobacco Use Types Packs/Day Years Used Date Smoking Tobacco: Former Smokeless Tobacco: Never Alcohol Use Standard Drinks/Week Comments Yes 0 (1 standard drink = 0.6 oz pur e alcohol) social Comments No Sex and Gender Information Value Date Recorded Sex Assigned at Not on file Legal Sex Female 11:31 AM EDT Gender Identity Not on file Sexual Orientation Not on file Last Filed Vital Signs Vital Sign Reading Time Taken Comments Blood Pressure 110/76 09/21/2015 11:10 AM EST Pulse 100 09/21/2015 11:10 AM EST Temperature 36.8 C (98.2 F) 09/21/2015 11:10 AM EST Respiratory Rate 16 12/13/2014 8:00 PM EDT Oxygen Saturation 98% 09/21/2015 11:10 AM EST Inhaled Oxygen Concentration - - Weight 47.6 kg (105 lb) 09/21/2015 11:10 AM EST Height 160 cm (5' 3 ) 09/21/2015 11:10 AM EST Body Mass Index 18.6 09/21/2015 11:10 AM EST Plan of Treatment Not on file Care Teams Automatic Driller And Reamer Relationship Specialty Start Date End Date Blu Rodriguez MD PCP - General 11/23/14
--- OUTSIDE RECORDS SUMMARY | 2025-06-09 10:01 | XMS_ITS | Clinical Summary ---
Author Organization [facility] Address [address] [place] [address] Care Team Providers Care Mechanical Maintenance Technician Name Role Phone Blade Light MD Primary Care Provider [phone] Allergies No known active allergies Medications cyclobenzaprine (FLEXERIL) 10 MG tablet Take 1 tablet by mouth 3 (Three) Times a Day As Needed for Muscle Spasms. Active ibuprofen (ADVIL,MOTRIN) 800 MG tablet Take 1 tablet by mouth Every 8 (Eight) Hours As Needed for Mild Pain or Headache. Active potassium chloride (K-DUR,KLOR-CON ) 20 MEQ CR tablet Take 2 tablets by mouth 2 (Two) Times a Day. Active escitalopram (LEXAPRO) 10 MG tablet Take 1 tablet by mouth Daily. Active ubrogepant (Ubrelvy) 50 MG tablet Take by mouth. Active fluticasone (FLONASE) 50 MCG/ACT nasal spray 2 sprays into the nostril(s) as directed by provider Daily. Active polyethylene glycol (MIRALAX) 17 g packet Take 17 g by mouth Daily. Active famotidine (PEPCID) 20 MG tablet Take 1 tablet by mouth 2 (Two) Times a Day. 60 tablet 1 03/22/2023 Active Active Problems Problem Noted Date Diagnosed Date Hypokalemia 03/18/2023 Acute UTI (urinary tract infection) 03/18/2023 Social History Tobacco Use Types Packs/Day Years Used Date Smoking Tobacco: Every Day Cigarettes 1 33 Smokeless Tobacco: Never Tobacco Cessation:Ready to Q uit: Not Asked Alcohol Use Standard Drinks/Week Comments Never 0 (1 standard drink = 0.6 oz pur e alcohol) AUDIT-C Answer Date Recorded Q1: How often do you have a drink containing alc ohol? Monthly or less 03/18/2023 Q2: How many drinks containi ng alcohol do you have on a typical day when you are drinking? 1 or 2 03/18/2023 Q3: How often do you have si x or more drinks on one occasion? Never 03/18/2023 Abuse Screen Answer Date Recorded Unsafe at Home or Work/School Not on file Feels Threatened by Someone? Not on file 12/2023 Does Anyone Keep You from Co ntacting Others or Doint Things Outside the Home? Not on file 04/07/2024 Physical Sign of Abuse Present Not on file 0 04/07/2024 Housing Stability Answer Date Recorded Current Living Arrangements Not on file 12/2023 Potentially Unsafe Housing Conditions Not on sesar e 04/07/2024 Family and Community Support Answer Gregg e Recorded Help with Day-to-Day Activities Not on file 05/15/2023 Lonely or Isolated Not on file 05/15/2023 Employment Answer Date Recorded Do you want help finding or keeping work or a nazanin b? Not on file 05/15/2023 Disabilities Answer Date Recorded Concentrating, Remembering, or Making Decisions Difficulty Not on file 04/07/2024 Doing Errands Independently Difficulty Not on fi le 04/07/2024 Education Answer Date Recorded Help with school or training? Not on file Preferred Language Not on file 05/15/2023 Comments No Sex and Gender Information Value Date Recorded Sex Assigned at Not on file Legal Sex Female 12:57 PM EDT Gender Identity Not on file Sexual Orientation Not on file Last Filed Vital Signs Vital Sign Reading Time Taken Comments Blood Pressure 120/85 03/22/2023 11:22 AM EDT Pulse 75 03/22/2023 12:00 PM EDT Temperature 36.8 C (98.3 F) 03/22/2023 11:22 AM EDT Respiratory Rate 18 03/22/2023 11:22 AM EDT Oxygen Saturation 93% 03/22/2023 12:00 PM EDT Inhaled Oxygen Concentration - - Weight 52.3 kg (115 lb 3.2 oz) 03/18/2023 6:23 P M EDT Height 158.8 cm (5' 2.5 ) 03/18/2023 6:23 PM EDT Body Mass Index 20.73 03/18/2023 6:23 PM EDT Plan of Treatment Health Maintenance Due Date Last Done Comments ANNUAL PHYSICAL 1975 Annual Gynecologic Pelvic and Breast Exam 1974 HEPATITIS C SCREENING 1974 MAMMOGRAM 2014 COLOGUARD 2019 COLON CANCER SCREENING 5 YEAR SIGMOIDOSCOPY 2019 COLONOSCOPY 2019 [address] CANCER SCREENING 2019 CT COLONOGRAPHY 2019 FECAL OCCULT BLOOD TEST 2019 FIT Testing (1 year) 2019 TDAP/TD VACCINES (2 - Td or Tdap) 09/04/2019 010 Pneumococcal Vaccine 50+ (1 of 1 - PCV) 01/04/2024 ZOSTER VACCINE (1 of 2) 01/04/2024 INFLUENZA VACCINE 03/03/2025 Insurance AETNA [facility] Advance Directives * CPR (Attempt to Resuscitate) (Latest Code Status on File) Date Activated Date Inactivated Comments 03/18/2023 4:47 PM 03/22/2023 3:12 PM Question Answer Comments Code Status (Patient has no pulse and is not breathing): CPR (Attempt to Resuscitate) Medical Interventions (Patie nt has pulse or is breathing): Full Support Level Of Support Discussed With: Patient Care Teams Mechanical Maintenance Technician Relationship Specialty Start Date End Date Blade Light MD [address] ATTN: [place] [address] PCP - General Emergency Medicine 03/18/23
--- OUTSIDE RECORDS SUMMARY | 2025-06-09 10:01 | XMS_ITS ---
Author Organization [facility] Address [address] [place] [address] Phone Care Team Providers Care Beater Room Supervisor Name Role Phone Unavailable Primary Care Provider Unavailabl e Active Problems Patient Care Coordination No te Formatting of this note migh t be different from the original. OMT Intake form scanned on 08/02/2019. Ricardo 02/19/15#[id number] Problem Noted Date Diagnosed Date History of laparoscopic adjustable gastric shey ng 01/22/2022 Other dysphagia 01/22/2022 Malignant melanoma of scalp 12/01/2014 Headache Temporomandibular joint disorders, unspecified Asthma Backache, unspecified Esophageal reflux Melanoma in situ of scalp Current Treatment and Therapy Plans No current plan information found. Past Treatment and Therapy Plans
--- OUTSIDE RECORDS SUMMARY | 2025-06-09 10:01 | XMS_ITS | Clinical Summary ---
Author Organization [facility] Address [address] [place] [address] Phone Care Team Providers Care Fluorescent Solution Mixer Name Role Phone Unavailable Primary Care Provider Unavailabl e Allergies No known active allergies Medications ondansetron (ZOFRAN-ODT) 4 mg Oral Tablet, Rapid DissolveIndication s:Nausea and vomiting, unspecified vomiting type Take 1 Tablet by mouth every 6 hours as needed for Nausea. 50 Tablet 5 01/21/20 22 Active topiramate (TOPAMAX) 15 mg Oral Capsule, SprinkleIndication s:History of migraine Take 1 Capsule by mouth 2 times daily. 36 Capsule 5 03/07/20 22 Active Additional Information Patient not taking.Reason: Therapy Completed, Reported on 11/12/2022 fluticasone propionate (FLONASE) 50 mcg/actuation Nasl [place], SuspensionIndicati ons:Seasonal allergic rhinitis due to other allergic trigger 2 sprays BID x 7 days then QD 16 g 2 09/26/19 23 Active hydroCHLOROthiazid e (MICROZIDE) 12.5 mg Oral CapsuleIndications :Peripheral edema Take 1 Capsule by mouth daily. 90 Capsule 2 09/26/19 23 Active Additional Information Patient not taking.Reason: Pt electing to not take the medication, Reported on 03/23/2023 nitrofurantoin, macrocrystal-monoh ydrate, (MACROBID) 100 mg Oral Capsule 10/11/19 23 Active oxyCODONE-acetamin ophen (PERCOCET) 5-325 mg Oral Tablet 10/15/19 23 Active potassium chloride (KLOR-CON/25 ORAL) Take by mouth. Active docusate sodium (STOOL SOFTENER ORAL) Take by mouth. Activ e IBU 800 mg Oral TabletIndications: Osteoarthritis, unspecified osteoarthritis type, unspecified site TAKE 1 TABLET BY MOUTH EVERY 8 HOURS NEEDED FOR PAIN. 45 Tablet 01/07/20 23 Active cyclobenzaprine (FLEXERIL) 10 mg Oral TabletIndications: History of migraine TAKE 1 TABLET BY MOUTH THREE TIMES DAILY NEEDED FOR MUSCLE SPASMS 120 Tablet 02/17/20 23 Active polyethylene glycol (GLYCOLAX, MIRALAX) 17 gram Oral Powder in Packet Take 2.9 g by mouth daily. Active ubrogepant (UBRELVY ORAL) Take 5 mg by mouth. Active escitalopram oxalate (LEXAPRO) 10 mg Oral TabletIndications: Seasonal affective disorder Take 1 tablet by mouth once daily 30 Tablet 10/14/19 24 Active Active Problems Patient Care Coordination No te Formatting of this note migh t be different from the original. OMT Intake form scanned on 08/02/2019. Ricardo 02/19/15#[id number] Problem Noted Date Diagnosed Date History of laparoscopic adjustable gastric shey ng 01/22/2022 Other dysphagia 01/22/2022 Malignant melanoma of scalp 12/01/2014 Headache Temporomandibular joint disorders, unspecified Asthma Backache, unspecified Esophageal reflux Melanoma in situ of scalp Immunizations Immunization Administration Dates Next Due Hepatitis A, Unspecified Formulation 09/04/2009 Hepatitis B, Unspecified Formulation 09/04/2009 Influenza Vaccine, Unspecified Formulation 04/23 Tdap 09/04/2009 Surgical History Surgery Date Site/Laterality Comments APPENDECTOMY LAP BAND [id number] BREAST ENHANCEMENT SURGERY ABDOMINAL EXPLORATION SURGERY SKIN CANCER EXCISION 12/01/2014 Right RT side of scalp with removal of lymphnodes to RT of neck OVARIAN CYST SURGERY Left OCTOBER 2022. left ovary tube and a cyst Medical History Medical History Date Comments Arthritis Asthma Constipation Migraines GERD (gastroesophageal reflux disease) Family History Medical History Relation Name Comments Arthritis Brother Hypertension Brother High Blood Pressure Father High Cholesterol Father Arthritis Mother Hypotension Mother Relation Name Status Comments Brother Alive Father Alive Mother Alive Social History Tobacco Use Types Packs/Day Years Used Date Smoking Tobacco: Every Day Cigarettes 0.5 21.8 Started: 08/03/2003 Smokeless Tobacco: Never Tobacco Cessation:Ready to Q uit: Not Asked; Counseling Given: Not Answered Alcohol Use Standard Drinks/Week Comments Yes 0 (1 standard drink = 0.6 oz pur e alcohol) rarely PHQ-2 Answer Date Recorded PHQ-2 Total Score 0 01/20/2022 Sexually Active Control Partners Comments Yes Other-see comments Male Comments No Sex and Gender Information Value Date Recorded Sex Assigned at Not on file Legal Sex Female 12:26 AM EDT Gender Identity Not on file Sexual Orientation Not on file Last Filed Vital Signs Vital Sign Reading Time Taken Comments Blood Pressure 118/80 03/23/2023 2:07 PM EDT Pulse 112 03/23/2023 2:07 PM EDT Temperature 36.4 C (97.5 F) 09/26/2022 1:27 PM EST Respiratory Rate 12 11/26/2022 9:13 AM EDT Oxygen Saturation 97% 03/23/2023 2:07 PM EDT Inhaled Oxygen Concentration - - Weight 51.5 kg (113 lb 9.6 oz) 03/23/2023 2:07 P M EDT Height 157.5 cm (5' 2 ) 03/23/2023 2:07 PM EDT Body Mass Index 20.78 03/23/2023 2:07 PM EDT Plan of Treatment Health Maintenance Due Date Last Done Comments Pneumococcal Vaccine 50+ (1 of 2 - PCV) 1993 Cervical Cancer Screening 1995 Pap Smear 1995 HPV/Pap Cotest 01/04/2004 Hepatitis B Vaccine (2 of 3 - 19+ 3-dose series) 10/02/2009 09/04/2009 Breast Cancer Screening 2014 Cologuard 2019 Colon Cancer Screening 2019 Colonoscopy 2019 FIT 2019 Sigmoidoscopy 2019 Virtual Colonography 2019 DTaP/TDaP/Td (2 - Td or Tdap) 09/04/2019 09/04/2009 Annual Wellness Exam 01/20/2023 01/20/2022 Zoster (1 of 2) 01/04/2024 COVID-19 Vaccine ( - 2024-2 6 season) 2025 Influenza Vaccine (#1) 2025 04/23/2009 Meningococcal B Vaccine Aged Out No l onger eligible based on patient's age to complete this topic Goals Goal Patient Goal Type Associated Problems Recent Progress Patient-Stated? Author Maintain a healthy diet, exercise regularly and maintain an ideal body weight General No Mainous, Verito, RMA Stay Tobacco Free Lifestyle No Mainous, Verito, RMA Insurance [id number] Salcedo AETNA POS 284JASON Salcedo31 AETNA POS
--- OUTSIDE RECORDS SUMMARY | 2025-06-09 10:01 | XMS_ITS | Clinical Summary ---
Author Organization [facility] Address [address] [place] [address] Care Team Providers Care Production Cloth Cutter Name Role Phone Blu Rodriguez MD Primary Care Provider [phone] Allergies Active Allergy Reactions Criticality Noted Date Comments Cephalexin Anaphylaxis High 12/01/2014 Penicillins Anaphylaxis High 12/01/2014 Medications cyclobenzaprine (Flexeril) 10 MG tablet Take 10 mg by mouth 3 (three) times a day if needed. 07/02/2022 Active escitalopram (Lexapro) 10 MG tablet 09/01/2022 Active hydroCHLOROthiaz kota (Microzide) 12.5 MG capsule Take 12.5 mg by mouth 1 (one) time each day. 02/05/2022 Active ibuprofen 800 MG tablet Take 800 mg by mouth every 8 (eight) hours if needed. 09/02/2022 Active topiramate (Topamax Sprinkle) 15 MG capsule 08/01/2022 Active Social History Tobacco Use Types Packs/Day Years Used Date Smoking Tobacco: Never Passive Smoke Exposure: Past Tobacco Cessation:Counseling Given: No Alcohol Use Standard Drinks/Week Comments Never 0 (1 standard drink = 0.6 oz pur e alcohol) PHQ-2 Answer Date Recorded Patient Health Questionnaire-2 Score 0 11/12/2022 PHQ-2A Answer Date Recorded Patient Health Questionnaire-2 Score 0 11/12/2022 Comments No Sex and Gender Information Value Date Recorded Sex Assigned at Not on file Legal Sex Female 3:19 PM EST Gender Identity Not on file Sexual Orientation Not on file Last Filed Vital Signs Vital Sign Reading Time Taken Comments Blood Pressure 146/96 11/12/2022 8:03 AM EDT Pulse - - Temperature - - Respiratory Rate - - Oxygen Saturation - - Inhaled Oxygen Concentration - - Weight 66.9 kg (147 lb 7.8 oz) 11/12/2022 7:56 A M EDT Height 162.6 cm (5' 4 ) 09/23/2022 2:06 PM EST Body Mass Index 25.32 09/23/2022 2:06 PM EST Plan of Treatment Health Maintenance Due Date Last Done Comments [facility]-HIV Screening 1974 [facility]-Hepatitis C Screening 1974 [facility]-Infant/Child/Adol SDOH Screenings 1974 [facility]- SDOH Screenings 01/04/1992 [facility]-Adult SDOH Screenings 01/04/1992 [facility]-Pap Smear 1995 [facility]-Cervical Cancer Screening 01/04/2004 [facility]-HPV/Cotest 01/04/2004 [facility]-Hepatitis B Vaccines (2 of 3 - 19+ 3-dose series) 10/02/2009 09/04/2009 CT Colonography 2019 Colonoscopy 2019 FIT-DNA 2019 FIT 2019 FOBT 2019 Sigmoidoscopy 2019 [facility]-Colorectal Cancer Screening 2019 [facility]-DTaP,Tdap,and Td Vaccine s (2 - Td or Tdap) 09/04/2019 09/04/2009 [facility]-Depression Screening 11/13/2023 11/12/2022 [facility]-Breast Cancer Screening 01/04/2024 [facility]-Pneumococcal Vaccine: 50 + Years (1 of 1 - PCV) 01/04/2024 [facility]-Zoster Vaccines (1 of 2) 01/04/2024 [id number] Vaccine (1 - 20 24-25 season) 2025 [facility]-Influenza Vaccine (#1) 2025 [facility]-Hepatitis A Vaccines Aged Out 09/04/2009 No longer eligible based on patient's age to complete this topic [facility]-Obesity Intervention Completed 11/12/2022 HPV Vaccines Aged Out No longer eligi ble based on patient's age to complete this topic [facility]-HIB Vaccines Aged Out No longer e ligible based on patient's age to complete this topic [facility]-IPV Vaccines Aged Out No longer e ligible based on patient's age to complete this topic [facility]-Rotavirus Vaccines Aged Out No lo nger eligible based on patient's age to complete this topic Insurance AETNA [place] Care Teams Production Cloth Cutter Relationship Specialty Start Date End Date Blu Rodriguez MD [address] [address] PCP - General 09/23/22
--- NOTE | 2025-06-09 10:03 | XR_ITS ---
FINAL REPORT CLINICAL HISTORY: cough congestion soa chest tightness FINDINGS: CHEST 2 VIEWS PA AND LATERAL The heart is normal in size. The mediastinum is unremarkable. The lungs are clear. There is no pneumothorax. Lap-Band device is present. IMPRESSION: No acute process. Reviewed, Interpreted and Dictated by Ayo Olguin MD Transcribed by Cheryl Lima Authenticated and [facility]
[2025-06-09 11:33] LABS: Hematocrit 38.7 % (37.0-47.0); Hemoglobin 13.1 g/dL (12.2-16.2); Immature Granulocytes % 0.4 %; Mean Corpuscular HGB Conc 33.9 g/dL (31.8-35.4); Mean Corpuscular Hemoglobin 28.7 pg (27.0-31.2); Mean Corpuscular Volume 84.7 fl (81-99); Nucleated Red Blood Cells % 0 %; Platelet Count 416 K/mm3 (142-424); Red Blood Count 4.57 M/mm3 (4.20-5.40); Red Cell Distribution Width-SD 39.4 fL; White Blood Count 11.3 K/mm3 (4.8-10.8)
[2025-06-09 12:13] LABS: Alanine Aminotransferase 12 U/L (12-78); Albumin Level 4.6 g/dl (3.5-5.0); Albumin/Globulin Ratio 1.4 (1.1-1.8); Alkaline Phosphatase 102 U/L (38-126); Aspartate Amino Transferase 28 U/L (14-36); Bilirubin,Total 0.5 mg/dl (0.2-1.3); Blood Urea Nitrogen 18 mg/dl (7-17); Calcium 9.9 mg/dl (8.4-10.2); Carbon Dioxide 32 mmol/L (22.0-30.0); Chloride 94 mmol/L (98-107); Creatinine,Serum 1.10 mg/dl (0.52-1.04); Estimated Glomerular Filt Rate 52 ml/min (>60); GFR (African American) 63 ML/MIN (>60); Globulin 3.2 g/dL (1.3-3.2); Glucose 89 mg/dl (74-100); Sodium 136 mmol/L (136-145); Total Protein,Serum 7.8 g/dl (6.3-8.2)
[2025-06-09 12:25] LABS: Anion Gap 13.1 mEq/L (5-15); Potassium 3.1 mmoL/L (3.5-5.1)
== END 2025-06-09 23:59 | disposition home or self-care (01) ==
LOC: LAB 09:58
PROVIDERS: PCP Family Medicine; Visit Provider Family Medicine
DX: E87.6 Hypokalemia (principal); R05.9 Cough, unspecified; R07.89 Other chest pain; R06.02 Shortness of breath
CPT/HCPCS: 36415; 71046; 80053; 85025

== ENCOUNTER 2025-06-21 11:19 | Outpatient (CLI) | payer BC, OTHER, SELFPAY ==
[2025-06-21 17:41] LABS: Chloride 95 mmol/L (98-107)
[2025-06-21 17:42] LABS: Potassium 3.1 mmoL/L (3.5-5.1); Sodium 139 mmol/L (136-145)
[2025-06-21 17:44] LABS: Blood Urea Nitrogen 15 mg/dl (7-17); Creatinine,Serum 1.20 mg/dl (0.52-1.04); Estimated Glomerular Filt Rate 47 ml/min (>60); GFR (African American) 57 ML/MIN (>60)
[2025-06-21 17:45] LABS: Anion Gap 13.1 mEq/L (5-15); Calcium 10.3 mg/dl (8.4-10.2); Carbon Dioxide 34 mmol/L (22.0-30.0); Glucose 72 mg/dl (74-100)
== END 2025-06-21 23:59 | disposition home or self-care (01) ==
LOC: LAB 11:19
PROVIDERS: PCP Family Medicine; Visit Provider Physician Assistant
DX: I49.1 Atrial premature depolarization (principal); I49.3 Ventricular premature depolarization; I47.20 Ventricular tachycardia, unspecified; E87.6 Hypokalemia
CPT/HCPCS: 36415; 80048; 93270

== ENCOUNTER 2025-07-17 07:09 | Outpatient (CLI) | payer BC, OTHER, SELFPAY ==
--- OUTSIDE RECORDS SUMMARY | 2025-07-17 07:13 | XMS_ITS | Clinical Summary ---
Author Organization [facility] Address [address], [address] [place] [address] Care Team Providers Care Hogshead Stock Clerk Name Role Phone Blu Rodriguez MD Primary Care Provider [phone] Allergies Active Allergy Reactions Criticality Noted Date [...] of Treatment Not on file Care Teams Hogshead Stock Clerk Relationship Specialty Start Date End Date Blu Rodriguez MD PCP - General 11/23/14
--- OUTSIDE RECORDS SUMMARY | 2025-07-17 07:13 | XMS_ITS | Clinical Summary ---
Author Organization [facility] Address [address] [place] [address] Care Team Providers Care Bead Wrapper Name Role Phone Blu Rodriguez MD Primary Care Provider [phone] Allergies Active Allergy Reactions Criticality Noted Date [...] 01/04/2024 [facility]-Zoster Vaccines (1 of 2) 01/04/2024 [id number] Vaccine (1 - 20 25-26 season) 2025 [facility]-Influenza Vaccine (#1) 2025 [facility]-Hepatitis A Vaccines Aged Out 09/04/2009 No longer eligible based on patient's age to complete this topic [facility]-Obesity Intervention Completed 11/12/2022 HPV Vaccines (No Doses Required) Completed [facility]-HIB Vaccines Aged Out No longer e ligible based on patient's age to complete this topic [facility]-IPV Vaccines Aged Out No longer e ligible based on patient's age to complete this topic [facility]-Rotavirus Vaccines Aged Out No lo nger eligible based on patient's age to complete this topic [facility] [facility] Care Teams Bead Wrapper Relationship Specialty Start Date End Date Blu Rodriguez MD [address] [place] [address] PCP - General 09/23/22
--- OUTSIDE RECORDS SUMMARY | 2025-07-17 07:13 | XMS_ITS | Clinical Summary ---
Author Organization [facility] Address [address] [place] [address] Phone Care Team Providers Care Health Data Administrator Name Role Phone Unavailable Primary Care Provider [...] 11/12/2022 fluticasone propionate (FLONASE) 50 mcg/actuation Nasl [place], SuspensionIndicati ons:Seasonal allergic rhinitis due to other [...] OMT Intake form scanned on 08/02/2019. Ricardo 02/19/15#[id number] Problem Noted Date Diagnosed Date History of [...] Surgery Date Site/Laterality Comments APPENDECTOMY LAP BAND [id number] BREAST ENHANCEMENT SURGERY ABDOMINAL EXPLORATION SURGERY SKIN [...] Date Smoking Tobacco: Every Day Cigarettes 0.5 22 Started: 08/03/2003 Smokeless Tobacco: Never Tobacco Cessation:Ready [...] No Mainous, Verito, RMA Insurance 284J[address]ON Salcedo [id number] AETNA POS 284[address]o [id number] AETNA POS
--- OUTSIDE RECORDS SUMMARY | 2025-07-17 07:13 | XMS_ITS ---
Author Organization [facility] Address [address] [place] [address] Phone Care Team Providers Care Self Sealing Fuel Tank Builder Name Role Phone Unavailable Primary Care Provider Unavailabl e Active Problems Patient Care Coordination No te Formatting of this note migh t be different from the original. OMT Intake form scanned on 08/02/2019. Ricardo 02/19/15#[id number] Problem Noted Date Diagnosed Date History of laparoscopic adjustable gastric shey ng 01/22/2022 Other dysphagia 01/22/2022 Malignant melanoma of scalp 12/01/2014 Headache Temporomandibular joint disorders, unspecified Asthma Backache, unspecified Esophageal reflux Melanoma in situ of scalp Current Treatment and Therapy Plans No current plan information found. Past Treatment and Therapy Plans
--- OUTSIDE RECORDS SUMMARY | 2025-07-17 07:13 | XMS_ITS | Clinical Summary ---
Author Organization [facility] Address [address] [place] [address] Care Team Providers Care Dredge Worker Name Role Phone Blade Light MD Primary Care Provider [phone] Allergies No known active allergies Medications cyclobenzaprine [...] 2) 01/04/2024 INFLUENZA VACCINE 03/03/2025 Insurance [employer] [facility] Advance Directives * CPR (Attempt to Resuscitate) (Latest Code Status on File) Date Activated Date Inactivated Comments 03/18/2023 4:47 PM 03/22/2023 3:12 PM Question Answer Comments Code Status (Patient has no pulse and is not breathing): CPR (Attempt to Resuscitate) Medical Interventions (Patie nt has pulse or is breathing): Full Support Level Of Support Discussed With: Patient Care Teams Dredge Worker Relationship Specialty Start Date End Date Blade Light MD [address] ATTN: [place] [address] PCP - General Emergency Medicine 03/18/23
--- NOTE | 2025-07-17 07:30 | CT_ITS ---
FINAL REPORT TECHNIQUE: Thin section axial images were obtained from the lung apices to the upper abdomen by computed tomography. Reformatted images were obtained and reviewed. This study was performed with techniques to keep radiation doses al low as reasonably achievable (ALARA). Individualized dose reduction techniques using automated exposure control or adjustment of mA and/or kV according to the patient's size were employed. CLINICAL HISTORY: lung cancer screening current smoker 1ppd x35 years COMPARISON: None FINDINGS: CHEST CT LOW DOSE 50-year-old female, current smoker, [id number] history CTDI vol (mGy): 2.90 DLP (mGy-cm): 112.81 Bilateral subglandular implants are present. There is no axillary adenopathy. There is no mediastinal or hilar mass or adenopathy. Calcified right hilar and subcarinal nodes are noted. The heart is normal in size. There is no pericardial or pleural effusion. A Lap-Band is present. There may be a small hiatal hernia through the Lap-Band. Lung window images demonstrate no suspicious infiltrate or nodule. Limited images of the upper abdomen are unremarkable. IMPRESSION: Lung-RADS category 1. Recommend 12 month follow up low dose chest CT. Reviewed, Interpreted and Dictated by Ayo Olguin MD Transcribed by Sejal Mojica Authenticated and [facility]
[2025-07-17] MEDS: ALBUTEROL 0.083% 2.5 MG/3 ML NEB IH (08:12)
--- NOTE | 2025-07-17 08:12 | PC.NURSE ---
PFT completed without incident. Albuterol 0.083% given via HHN, per written protocol, Pt tolerated tx well.
--- NOTE | 2025-07-17 09:30 | CA_ITS ---
APPROVED REPORT EXAM: Comprehensive 2D, Doppler, and color-flow Echocardiogram Telephone Order Dispatcher: Ila Durbin RVT Ht: 5 ft 3 in Wt: 125lbs BSA: 1.58 BP: 108/80 mmHg Indications: PALPITATIONS,ABNORMAL EKG,CHEST PAIN 2D Dimensions IVSd 0.74 cm F: 0.6-1.0 LVEF (Visual) 60.40 % PWd 0.56 cm F: 0.6 - 1.0 LA Volume 14.00 mL LVDd 3.87 cm F: 3.9 - 5.3 LA Volume Index 8.81 mL/m2 (M/F) 16-34 LVDs 2.64 cm F: 2.2 - 3.5 M-Mode Dimensions LA Diam 2.37 cm (1.9-4.0) LV Diastology E Decel Time 63 (160-240 msec) E/A Ratio 0.8 Aortic Valve FREEDOM Index 2.05 cm2/m2 AoV Peak Zuhair. 78.0 (50-130 cm/s) AO Peak GR. 2.40 mmHg AO Mean GR. 1.60 (<5 mmHg) AO VTI 10.5 (18-25 cm) FREEDOM (VTI) 3.32 (2.5-4.5 cm2) Mitral Valve MV E Max Zuhair. 54.0 (40-130 cm/s) MV A Velocity 67.0 (40-130 cm/s) E/A Ratio 0.80 MV PHT 19.0 ms Pulmonary Valve PV Peak Velocity 71.0 (50-150 cm/s) Left Ventricle The left ventricle is normal size. Left ventricular systolic function is mildly reduced. There is normal left ventricular wall thickness. The septum is asynchronous. The left ventricular diastolic function is normal. LVEF is 45% Right Ventricle The right ventricle is normal size. The right ventricular systolic function is normal. Atria The left atrium size is normal. The right atrium size is normal. There is no color Doppler evidence of interatrial shunt. Aortic Valve The aortic valve opens well. There is no hemodynamically significant aortic valvular stenosis. No aortic regurgitation is present. Mitral Valve The mitral valve is normal in structure. No evidence of mitral valve stenosis. Trace mitral regurgitation is present. Tricuspid Valve The tricuspid valve leaflets are thin and pliable. Trace tricuspid regurgitation. There is insufficient TR jet to estimate RVSP. Pulmonic Valve The pulmonary valve is grossly normal in structure. Trace pulmonic valve regurgitation is present. Great Vessels The aortic root is normal in size. IVC is normal in size and collapses >50% with inspiration. Pericardium There is no pericardial effusion. Conclusion Mildly reduced LV systolic function (LVEF 45%). Asynchronous septum. No significant valvular stenosis or regurgitation. Electronically signed by : Nataliia Paris MD 07/20/2025 07:36:56
[2025-07-17 10:39] LABS: Alanine Aminotransferase 13 U/L (12-78); Albumin Level 4.6 g/dl (3.5-5.0); Albumin/Globulin Ratio 1.5 (1.1-1.8); Alkaline Phosphatase 94 U/L (38-126); Aspartate Amino Transferase 24 U/L (14-36); Bilirubin,Total 0.5 mg/dl (0.2-1.3); Blood Urea Nitrogen 23 mg/dl (7-17); Calcium 9.8 mg/dl (8.4-10.2); Carbon Dioxide 29 mmol/L (22.0-30.0); Chloride 98 mmol/L (98-107); Creatinine,Serum 1.10 mg/dl (0.52-1.04); Estimated Glomerular Filt Rate 52 ml/min (>60); GFR (African American) 63 ML/MIN (>60); Globulin 3.0 g/dL (1.3-3.2); Glucose 77 mg/dl (74-100); Sodium 138 mmol/L (136-145); Total Protein,Serum 7.6 g/dl (6.3-8.2)
[2025-07-17 10:40] LABS: Anion Gap 14.1 mEq/L (5-15); Potassium 3.1 mmoL/L (3.5-5.1)
== END 2025-07-17 23:59 | disposition home or self-care (01) ==
PROVIDERS: PCP Family Medicine; Visit Provider Family Medicine
DX: E87.6 Hypokalemia (principal); R93.1 Abnormal findings on diagnostic imaging of heart and coronary circulation; R00.2 Palpitations; R94.31 Abnormal electrocardiogram [ECG] [EKG]; R07.89 Other chest pain; R94.2 Abnormal results of pulmonary function studies; Z87.891 Personal history of nicotine dependence; R06.09 Other forms of dyspnea
CPT/HCPCS: 36415; 71271; 80053; 93306; 94060; 94726; 94729

== ENCOUNTER 2025-07-18 06:25 | Outpatient (CLI) | payer BC, OTHER, SELFPAY ==
--- NOTE | 2025-07-18 | CA_ITS ---
APPROVED REPORT Exam: Pharmacologic Technologist: Pat Acevedo Stress Nurse: Daniel Grey Ht: 5 ft 3 in Wt: 125 lbs BSA: 1.58 m2 HR: 91 bpm BP: 102/77 mmHg Medical History Medications: Amitriptyline, Bupropion HCI, Cyclobenzaprine, Escitalopram Oxalate, Estradiol, Flonase, Ibuprofen, Potassium Chloride Er, Sumatriptan Succinate. Allergies: NKA Stress Test Details Test: Lexiscan HR Resting HR: 71 bpm Max Heart Rate (APMHR): 169.266895 bpm Max HR Achieved: 115 bpm Target HR (85% APMHR): 143.948801 bpm % of APMHR: 68.05 Recovery HR: 107 bpm BP Resting BP: 102.0/77.0 mmHg Max BP: 116.0/79.0 mmHg Recovery BP: 113.0/79.0 mmHg ECG Stress ECG Conclusion Symptoms: SOA, Pressure. Arrhythmias/Ectopy: None. ST-T Changes: EKG nondiagnostic [place]. Electronically signed by : Nataliia Paris MD 07/21/2025 13:35:25
--- OUTSIDE RECORDS SUMMARY | 2025-07-18 06:27 | XMS_ITS | Clinical Summary ---
Author Organization [facility] Address [address] [place] [address] Phone Care Team Providers Care Cartoon Designer Name Role Phone Unavailable Primary Care Provider [...] 11/12/2022 fluticasone propionate (FLONASE) 50 mcg/actuation Nasl [place], SuspensionIndicati ons:Seasonal allergic rhinitis due to other [...] OMT Intake form scanned on 08/02/2019. Ricardo 02/19/15#[id number] Problem Noted Date Diagnosed Date History of [...] Surgery Date Site/Laterality Comments APPENDECTOMY LAP BAND [id number] BREAST ENHANCEMENT SURGERY ABDOMINAL EXPLORATION SURGERY SKIN [...] No Mainous, Verito, RMA Insurance [id number] [id number] [employer] POS [id number] [id number] [employer] POS
--- OUTSIDE RECORDS SUMMARY | 2025-07-18 06:27 | XMS_ITS | Clinical Summary ---
Author Organization [facility] Address [address], [address] [place] [address] Care Team Providers Care County Program Technician Name Role Phone Blu Rodriguez MD Primary Care Provider Allergies Active Allergy Reactions Criticality Noted Date [...] of Treatment Not on file Care Teams County Program Technician Relationship Specialty Start Date End Date Blu Rodriguez MD PCP - General 11/23/14
--- OUTSIDE RECORDS SUMMARY | 2025-07-18 06:27 | XMS_ITS | Clinical Summary ---
Author Organization [facility] Address [address] [place] [address] Care Team Providers Care Community Outreach Worker Name Role Phone Blade Light MD Primary Care Provider [phone] Allergies No known active allergies Medications cyclobenzaprine [...] 2) 01/04/2024 INFLUENZA VACCINE 03/03/[address] [facility] Advance Directives * CPR (Attempt to Resuscitate) (Latest Code Status on File) Date Activated Date Inactivated Comments 03/18/2023 4:47 PM 03/22/2023 3:12 PM Question Answer Comments Code Status (Patient has no pulse and is not breathing): CPR (Attempt to Resuscitate) Medical Interventions (Patie nt has pulse or is breathing): Full Support Level Of Support Discussed With: Patient Care Teams Community Outreach Worker Relationship Specialty Start Date End Date Blade Light MD [address] [facility] [address] ATTN: [place] [address] PCP - General Emergency Medicine 03/18/23
--- OUTSIDE RECORDS SUMMARY | 2025-07-18 06:27 | XMS_ITS ---
Author Organization [facility] Address [address] [place] [address] Phone Care Team Providers Care Architectural Design Lecturer Name Role Phone Unavailable Primary Care Provider Unavailabl e Active Problems Patient Care Coordination No te Formatting of this note migh t be different from the original. OMT Intake form scanned on 08/02/2019. Ricardo 02/19/15#[id number] Problem Noted Date Diagnosed Date History of laparoscopic adjustable gastric shey ng 01/22/2022 Other dysphagia 01/22/2022 Malignant melanoma of scalp 12/01/2014 Headache Temporomandibular joint disorders, unspecified Asthma Backache, unspecified Esophageal reflux Melanoma in situ of scalp Current Treatment and Therapy Plans No current plan information found. Past Treatment and Therapy Plans
--- OUTSIDE RECORDS SUMMARY | 2025-07-18 06:27 | XMS_ITS | Clinical Summary ---
Author Organization [facility] Address [address] [place] [address] Care Team Providers Care Transaction Processor Name Role Phone Blu Rodriguez MD Primary [...] 01/04/2024 UKY-Zoster Vaccines (1 of 2) 01/04/2024 LEL-DLTER-80 Vaccine (1 - 20 25-26 season) 2025 [...] patient's age to complete this topic [facility] [facility] Care Teams Transaction Processor Relationship Specialty Start Date End Date Blu Rodriguez MD [address] [place] [address] PCP - General 09/23/22
--- NOTE | 2025-07-18 06:30 | NM_ITS ---
APPROVED REPORT Exam: Nuclear Stress Test Indication: Chest pain, SOB, Former tobacco use, Family history Patient Location: Outpatient Stress Tech: Pat Gilbert [place] Tech:Azul Matthews, ARRT, RT (R)(N) Ht: 5 ft 3 in Wt: 125 lbs Bra Size: 34D HR: 91 bpm BP: 102/77 mmHg BSA: 1.58 m2 TID: 1.10 BMI: 22.1 History: Chest pain, SOB, Former tobacco use, Family history Procedure: Patient received 0.4 mg of intravenous Lexiscan, resting heart rate 91 bpm, resting blood pressure 102/77 mmHg, with Lexiscan maximum heart rate achieved was 116 bpm which is % of the maximum predicted heart rate and blood pressure was 116/79 mmHg. With Lexiscan, patient denied any complaint of chest pain. Cardiac Stress and Resting SPECT Images: Cardiac Stress and Resting SPECT images were obtained using technetium 99m Myoview 29.5 mCi stress and 10.98 mCi at rest. Resting and stress imaging in supine and prone positions demonstrate no evidence of fixed or reversible perfusion defects. Gated imaging demonstrates mild reduction in global LV systolic function. LVEF is calculated at 48%. Conclusion: No evidence of fixed or reversible perfusion defects. Gated imaging demonstrates mild reduction in global LV systolic function. LVEF is calculated at 48%. Electronically signed by : Nataliia Paris MD 07/20/2025 07:34:24
[2025-07-18] MEDS: SODIUM CHLORIDE 0.9% 10ML SYR (RAD ONLY) 10 ML IV ×2 (08:40)
[2025-07-18] MEDS: ISOTOPE MYOVIEW (PER STUDY) 1 DOSE IV (08:40)
== END 2025-07-18 23:59 | disposition home or self-care (01) ==
LOC: RAD 06:25
PROVIDERS: PCP Family Medicine; Visit Provider Physician Assistant
DX: R07.89 Other chest pain (principal); R06.09 Other forms of dyspnea; R06.02 Shortness of breath; Z87.891 Personal history of nicotine dependence
CPT/HCPCS: 78452; 93017; 93018; A9502; J2785

== ENCOUNTER 2025-07-23 10:02 | Emergency (ER) | payer BC, OTHER, SELFPAY ==
[2025-07-23] VITALS (11 sets, daily range): BP systolic 95–136; BP diastolic 65–92; PULSE 76–114; RESP 15–22; TEMP 36.7–37.2; O2SAT 95–100; BMI 21.4
--- NOTE | 2025-07-23 10:16 | ED_ITS ---
<Statement entered by Mekhi Ness MD - 07/23/25 13:43> I was consulted by the HOLDEN, and we discusssed the complexity of the problems being adressed. I approved the treatment and management plan for this patient's care in the Emergency Department, thus performing a substantive portion of the medical decision making. Mekhi Ness MD Discharge Plan Disposition Patient Disposition: Home, Self-Care Condition: Good Prescriptions Prescriptions: No Action aspirin [Adult Low Dose Aspirin] 81 mg tablet,delayed release (DR/EC) 81 mg PO DAILY Qty: 30 2RF albuterol sulfate [Ventolin HFA] 90 mcg/actuation HFA aerosol inhaler 2 puff inhalation Q4-6H PRN (Reason: shortness of breath or wheezing) Qty: 6.7 0RF fluticasone propionate 50 mcg/actuation spray,suspension 1 spray INTRANASAL DAILY Qty: 16 4RF isosorbide mononitrate 60 mg tablet extended release 24 hr 60 mg PO DAILY Qty: 30 2RF estradiol 0.01 % (0.1 mg/gram) cream 1 g vaginal .COMPLEX Qty: 42.5 0RF Rx Instructions: 2 gram vaginally daily for for 1 week, then 1 gram vaginally 1-3 times per week as needed for atrophy/dryness amitriptyline 25 mg tablet See Rx Instructions .ROUTE .COMPLEX Qty: 30 3RF Dose Instruction: TAKE 1 TABLET BY MOUTH AT BEDTIME NIGHTLY Rx Instructions: TAKE 1 TABLET BY MOUTH AT BEDTIME NIGHTLY escitalopram oxalate 10 mg tablet 10 mg PO DAILY Qty: 30 3RF cyclobenzaprine 10 mg tablet 10 mg PO TIDP PRN (Reason: Muscle Spasm) Qty: 90 5RF ibuprofen 800 mg tablet 800 mg PO TIDP PRN (Reason: migraines) Qty: 90 5RF sumatriptan succinate 50 mg tablet 50 mg PO .COMPLEX Qty: 18 3RF Rx Instructions: 50 mg orally at onset of migraine headache, may repeat dose after 2 hours. Maximum of 4 doses/day bupropion HCl (smoking deter) 150 mg tablet extended release 12 hr 150 mg PO BID Qty: 60 2RF Rx Instructions: one daily for first three days, then advance to BID. potassium chloride 10 mEq capsule, extended release See Rx Instructions .ROUTE .COMPLEX Qty: 14 0RF Dose Instruction: TAKE 4 CAPSULES BY MOUTH ONCE DAILY Rx Instructions: TAKE 2 CAPSULES BY MOUTH ONCE DAILY nitroglycerin 0.4 mg tablet, sublingual 0.4 mg sublingual Q5M PRN (Reason: chest pain) Qty: 20 5RF Rx Instructions: do not exceed 3 doses per episode potassium chloride [K-Tab] 20 mEq tablet extended release 20 meq PO DAILY Qty: 30 2RF Rx Instructions: take 1 PO BID for 2 days, then 1 q day. ciprofloxacin HCl 0.3 % drops See Rx Instructions ophthalmic (eye) .COMPLEX Qty: 2.5 0RF Rx Instructions: put 1-2 drps in affected eye(s) every 2hr while awake up to 8 times/day x2days; then 4 times/day x5days ophthalmic (eye) Referrals Follow up/Referrals: Saul Huffman MD [Primary Care Provider, Family Practice] - See instructions Pauline Sykes MD [Staff Physician, Neurology] - See instructions Activity Restrictions/Add. Instructions Additional Instructions/Restrictions: Please return to the emergency department with any worsening signs or symptoms. Please follow-up with neurologist as stated above for outpatient appointment for possible MRI and other evaluation of migraines. Please continue to take all medications as prescribed. Clinical Impressions Clinical Impression: Migraine Instructions Patient Instructions: DI for Migraine Print Language Print Language: Bolivian Discharge ED Provider: Mekhi Ness Adult HPI General Chief complaint: Headache Stated complaint: headache, no memory of yesterday Time Seen by Provider: 07/23/25 10:04 Mode of Arrival: Ambulatory Source of Information: Patient and Medical Record Limitations: No Limitations History of Present Illness HPI narrative: 50-year-old female presents to the emergency department with a headache and intermittent amnesia/confusion that began yesterday, patient tells me that she I do not member much of yesterday , patient members having a headache, she endorses being confused about specific date and time, GCS of 15 at the bedside today, did have initial difficulty with exact date, but then corrected herself. Alert oriented to person place and time. Denies any fever or chills, does have history of migrainous type headaches, takes Imitrex for this, states this provided little to no relief, gradual onset yesterday which is worsened, she had some episodes of nausea no vomiting no visual disturbance, no chest pain, does endorse shortness of breath, that is being currently worked up by cardiology, follow-up in outpatient clinic was on 07/20/2025 I reviewed the notes, patient has concern for underlying cardiomyopathy/HFrEF, set up for advanced cardiac imaging, was started on Imdur and nitroglycerin for chest pain/shortness of breath. Patient denies any overt neck pain, denies any numbness or tingling, denies any saddle anesthesia urinary bladder or bowel dysfunction, denies any overt abdominal pain constipation diarrhea no urinary symptomatology, patient is a former smoker, denies any alcohol or drug use, other past medical history is consistent with IBS, MDD/INDU, prior gastric banding surgery. Initial triage vitals are notable for tachycardia otherwise unremarkable. Please note that above description of symptoms, in this electronic medical record under categorization of recalled from ER triage doctor by RN are reflective of an initial nursing assessment, however, is not reflective of my full history and physical exam that was personally taken and clarified. Consequentially, this preceding description of symptoms, which may include the patient's categorized chief complaint in the EMR, do not reflect my personal clinical impression, and the ultimate description of history of present illness and patient stated complaints should be deferred to this section of the note. Unless stated otherwise or congruent with this section of the note, additional signs, symptoms, or incongruence should be interpreted as inaccurate with my clinical impression. Onset (ago): hour(s) Related Data Previous Rx's ?Medication ?Instructions ?Recorded estradiol 0.01% (0.1 mg/gram) 1 g vaginal .COMPLEX #42 .5 grams 08/11/24 vaginal cream amitriptyline 25 mg tablet See Rx Instructions .Route 02/23/25 .COMPLEX #30 tabs cyclobenzaprine 10 mg tablet 10 mg PO TIDP PRN Muscle Spasm #90 03/24/25 tabs escitalopram oxalate 10 mg tablet 10 mg PO DAILY Depre ssion #30 tabs 03/24/25 ibuprofen 800 mg tablet 800 mg PO TIDP PRN migraines #90 03/24/25 tabs sumatriptan succinate 50 mg tablet 50 mg PO .COMPLEX # 18 tabs 03/24/25 bupropion HCl (smoking deter) 150 150 mg PO BID #60 ta bs 05/26/25 mg tablet,12 hr sustained-release(smoking deterrent) fluticasone propionate 50 1 spray intranasal DAILY All ergy 06/09/25 mcg/actuation nasal symptoms #16 grams spray,suspension albuterol sulfate 90 mcg/actuation 2 puff inhalation Q 4-6H PRN 06/21/25 aerosol inhaler (Ventolin HFA) shortness of breath or wheezing #6.7 grams aspirin 81 mg tablet,delayed 81 mg PO DAILY #30 tabs 1 08/21/24 release (Adult Low Dose Aspirin) potassium chloride 10 mEq See Rx Instructions .Route 1 08/23/24 capsule,extended release .COMPLEX #14 caps nitroglycerin 0.4 mg sublingual 0.4 mg sublingual Q5M PRN chest 07/17/25 tablet pain #20 tabs potassium chloride 20 mEq 20 meq PO DAILY #30 tabs tablet,extended release (K-Tab) isosorbide mononitrate 60 mg 60 mg PO DAILY #30 tabs 1 09/20/24 tablet,extended release 24 hr ciprofloxacin HCl 0.3 % eye drops See Rx Instructions ophthalmic 07/21/25 (eye) .COMPLEX #2.5 mL Allergies Allergy/AdvReac Type Severity Reaction Status Date / Time No Known Allergies Allergy Verified 07/20/25 08:39 [facility] Disclaimer: The information contained in this section may have been updated after the patient was seen, as this information can be updated by other users. Medical History Chest tightness Vitamin D deficiency Neuropathy Abnormal Pap smear of cervix Breast cancer screening by mammogram Screening for colon cancer Ex-cigarette smoker greater than 20 pack years, quit in 2024 Sinusitis, acute Cigarette smoker motivated to quit Hypokalemia Hypokalemia due to excessive gastrointestinal loss of potassium Anxiety Surgical History Hx of breast augmentation Hx of appendectomy S/P removal of left ovary H/O laparoscopic adjustable gastric banding Surgery completed in 2008 Social History Smoking Status: Former smoker tobacco type: cigarettes smoking status start date: 35 years ago years smoked: 35 smoking status stop date: 05/03/2025 how long ago did patient quit smokin month quit status: quit date established alcohol intake: never substance use type: denies use current occupational status: employed Travel in the last 8 weeks?: None Have you lived/traveled outside US in past 30 days?: No Contact w/someone who lives/traveled outside US past 30 days?: No Exposure to someone with infectious disease in past 14 days?: No Do you have a fever (greater than 100.4 F or 38 C)?: No Have you tested positive for COVID-19?: No Exposed to someone with COVID-19 in past 14 days?: No Do you have a sore throat?: No Do you have a cough?: No Do you have any weakness?: No Do you have any diarrhea?: No Are you experiencing any unusual bleeding?: No Do you have any muscle aches/pain?: No Do you have any abdominal pain?: No Are you experiencing loss of taste or smell?: No Other Medical History Have you received the Flu Vaccine for this season: No Have you received the Pneumonia Vaccine: No ROS Obtained: Yes All systems reviewed & no additional complaints except as documented Physical Exam General General appearance: alert and in no apparent distress Head Head exam: atraumatic and normocephalic Eye Eye exam: Present PERRL and EOMI ENT ENT exam: Present mucous membranes moist Neck Neck exam: Present normal inspection Chest Chest inspection: Present normal inspection and symmetric chest wall rise Respiratory Respiratory exam: Present normal lung sounds bilaterally; Absent respiratory distress, wheezes or stridor Cardiovascular Cardiovascular exam: Present normal rhythm and tachycardia Abdominal Exam Abdominal exam: Present soft; Absent tenderness, guarding, rebound or rigidity Extremities Exam Extremities exam: Present normal inspection Neurological Exam Neurological exam: Present alert, oriented X3 and other (5 out of 5 strength in the bilateral lower and upper extremities, no gross focal neurological deficit, no gross sensation deficit, no pronator drift in the bilateral lower and upper extremities.) Psychiatric Psychiatric exam: Present normal affect Skin Skin exam: Present warm and dry Medical Decision Making Medical Records Medical records reviewed: Yes I reviewed the patient's medical records. Screening: Per USPSTF and CDC recommendations, given the prevalence of disease in our region, it is our hospital?s policy to screen for HIV and viral Hepatitis for all patients aged 18 and over and those with ongoing risk factors. Ricardo Inquiry Pt receiving controlled substance: No Ricardo was queried for this patient: No Vital Signs: 07/23/25 10:06 07/23/25 10:13 07/23/25 10:30 Temperature 99.0 F Temperature Source Oral Pulse Rate 111 H 102 H Pulse Rate [Left Radial] 114 H Respiratory Rate 22 Blood Pressure 136/92 H 110/76 Blood Pressure [Right Arm] 136/92 H Blood Pressure Mean Blood Pressure Mean [Right Arm] 106 02 Sat by Pulse Oximetry 97 95 98 Oxygen Delivery Method Room Air 07/23/25 11:00 07/23/25 11:04 07/23/25 11:30 Temperature Temperature Source Pulse Rate 100 H 98 H Pulse Rate [Left Radial] Respiratory Rate Blood Pressure 115/73 105/72 L Blood Pressure [Right Arm] Blood Pressure Mean 80 Blood Pressure Mean [Right Arm] 02 Sat by Pulse Oximetry 97 99 Oxygen Delivery Method 07/23/25 12:00 07/23/25 12:30 07/23/25 12:45 Temperature Temperature Source Pulse Rate 87 90 87 Pulse Rate [Left Radial] Respiratory Rate 17 16 Blood Pressure 107/69 L 95/65 L Blood Pressure [Right Arm] Blood Pressure Mean Blood Pressure Mean [Right Arm] 02 Sat by Pulse Oximetry 98 99 99 Oxygen Delivery Method Room Air Room Air 07/23/25 13:00 Temperature Temperature Source Pulse Rate 90 Pulse Rate [Left Radial] Respiratory Rate Blood Pressure 110/67 Blood Pressure [Right Arm] Blood Pressure Mean Blood Pressure Mean [Right Arm] 02 Sat by Pulse Oximetry 100 Oxygen Delivery Method Lab Data Lab results reviewed: Yes I reviewed the patient's lab results. Lab Results 07/23/25 10:15: WBC 7.6, RBC 4.06 L, Hgb 12.0 L, Hct 35.2 L, MCV 86.7, MCH 29.6, MCHC 34.1, RDW 13.4, Plt Count 324, MPV 10.4, Neut % (Auto) 61.3, Lymph % (Auto) 27.9, [place] % (Auto) 7.4, Eos % (Auto) 2.2, Baso % (Auto) 0.8, Neut # (Auto) 4.6, Lymph # (Auto) 2.1, [place] # (Auto) 0.6, Eos # (Auto) 0.2, Baso # (Auto) 0.1, ESR 16, Sodium 136, Potassium 3.2 L, Chloride 101, Carbon Dioxide 28, Anion Gap 10.2, BUN 14, Creatinine 1.30 H, Estimated Creat Clear 44, Estimated GFR 43 L, E st GFR ( Amer) 52 L, Glucose 103 H, Calcium 9.4, Magnesium 1.9, Total Bilirubin 0.4, AST 23, ALT 15, Alkaline Phosphatase 73, Troponin I < 0.01, C- Reactive Protein 1.0, NT-Pro-B Natriuret Pep < 20.0, Total Protein 7.1, Albumin 4.4, Globulin 2.7, Albumin/Globulin Ratio 1.6, HCV Ab CHRISTINA w/Rflx PCR Qn Negative, HIV Ag/Ab Combo Qual Negative 07/23/25 10:39: Urine Color Yellow, Urine Appearance Clear, Urine pH 6.0, Ur Specific [place] >= 1.030, Urine Protein Negative, Urine Glucose (UA) Negative, Urine Ketones Negative, Urine Blood Trace-i, Urine Nitrate Negative, Urine Bilirubin Negative, Urine Urobilinogen 0.2, Ur Leukocyte Esterase Negative, Urine RBC Occasional, Urine WBC 5-10, Ur Squamous Epith Cells 3-5, Urine Bacteria Trace, WBC Casts Occasional 07/23/25 10:41: Urine Opiates Screen Negative, Urine Methadone Screen Negative, Ur Barbituates Screen Negative, Ur Phencyclidine Scrn Negative, Ur Amphetamines Screen Negative, U Benzodiazepines Scrn Negative, Urine Cocaine Screen Negative, U Marijuana (THC) Screen Negative 07/23/25 11:05: Ammonia < 9 L 07/23/25 10:15 07/23/25 10:15 Orders (Tests/Meds): ED MEDICATIONS Generic Name Dose Route Start Last Admin Trade Name Freq PRN Reason Stop Dose Admin Sodium Chloride 10 ml 07/23/25 11:41 07/23/25 11:42 Sodium Chloride 0.9% 10ml Syr (Rad Only) IV 08/22/25 11:40 10 ml NEEDED PRN Administration Maintain IV Site Discontinued Medications Generic Name Dose Route Start Last Admin Trade Name Freq PRN Reason Stop Dose Admin Dexamethasone Sodium Phosphate 10 mg 07/23/25 10:34 07/23/25 10:42 Dexamethasone 4mg/Ml 1ml Vial IV 07/23/25 10:35 10 mg ONCE ONE Administration Diphenhydramine HCl 25 mg 07/23/25 10:28 07/23/25 10:42 Diphenhydramine 50mg/Ml Vial IV 07/23/25 10:29 25 mg ONCE ONE Administration Hydromorphone HCl 0.5 mg 07/23/25 12:16 07/23/25 12:32 Hydromorphone 2mg/Ml Syringe IV 07/23/25 12:17 0.5 mg ONCE ONE Administration Lactated Ringer's 1,000 mls @ 999 mls/hr 07/23/25 11:45 07/23/25 13:13 Lactated Ringer's 1000 Ml Bag IV 07/23/25 12:45 Infused .Q1H1M ONE Infusion Iopamidol 80 ml 07/23/25 11:41 07/23/25 11:45 Iopamidol-370 (76%);100ml Bottle IV 07/23/25 11:42 80 ml ONCE ONE Administration Metoclopramide HCl 10 mg 07/23/25 10:28 07/23/25 10:48 Metoclopramide Hcl 10mg/2ml Vial IVP 07/23/25 10:29 10 mg ONCE ONE Administration Potassium Chloride 40 meq 07/23/25 10:46 07/23/25 11:02 Potassium Chloride 20meq Tab PO 07/23/25 10:47 40 meq ONCE ONE Administration Sodium Chloride 50 ml 07/23/25 11:41 07/23/25 11:45 0.9 % Sodium Chloride 50 Ml Vial IV 07/23/25 11:42 50 ml ONCE ONE Administration ORDERS Category Date Time Status CT angio head Stat Cat Scan 07/23/25 10:[address] angio neck Stat Cat Scan 07/23/25 10:[address] head/brain wo con Stat Cat Scan 07/23/25 10:25 Completed Ammonia Stat Lab 07/23/25 11:05 Completed CRP [C-Reactive Protein] Stat Lab 07/23/25 10:15 Completed Complete Blood Count Auto Diff Stat Lab 07/23/25 10:15 Completed Comprehensive Metabolic Panel Stat Lab 07/23/25 10:15 Completed Drug Screen,Urine Stat Lab 07/23/25 10:41 Completed ESR [Erythrocyte Sedimentation Rate] Stat Lab 07/23/25 10:15 Completed HIV Combo Routine Lab 07/23/25 10:15 Completed Hepatitis C Ab Qual. W/ RFX Routine Lab 07/23/25 10:15 Completed Magnesium Stat Lab 07/23/25 10:15 Completed NT Pro Brain Natriuretic Pep. Stat Lab 07/23/25 10:15 Completed Troponin I Q3H Lab 07/23/25 13:30 Ordered Troponin I Q3H Lab 07/23/25 16:30 Ordered Troponin I Stat Lab 07/23/25 10:15 Completed Urinalysis and Microscopic Stat Lab 07/23/25 10:39 Completed Medical Decision Narrative: 50-year-old female presents to the emergency department with headache and amnesia, of yesterday, see HPI for detailed past medical history differential diagnose include but not limited to, migraine with aura, migraine without aura, complex migraine, transient global amnesia, psychosis, anxiety, panic attack, cardiac arrhythmia, electrolyte disturbance, acute UTI, metabolic encephalopathy, uremic encephalopathy among others. I discussed this patient's case with the attending physician Dr. Ness he saw and examined the patient as well as Will obtain basic laboratory studies, UDS magnesium level proBNP troponin, UA, EKG, ammonia level, EKG, CT head without contrast, CTA head and neck with and without contrast, will give 25 mg IV Benadryl, 10 mg IV dexamethasone and 10 mg IV Reglan for migraine type cocktail. CBC unremarkable Mild hypokalemia at 3.2, thus will replace with 40 mEq p.o. potassium. Creatinine is elevated at 1.3, which is mildly increased outside of baseline several days ago at 1.1, will add on 1 L LR IV to patient's migraine cocktail. proBNP within normal limits troponin is less than 0.01 UA is noted for trace hematuria otherwise unremarkable, no nitrites, no leukocyte esterase. UDS is unremarkable, microscopic analysis is notable for occasional RBCs, 5-10 WBCs, 3-5 squamous epithelial cells and trace bacteria. Ammonia level within normal limits I reviewed the patient's CT head without contrast and with corresponding radiologic report, no acute intracranial abnormality. I reviewed the patient's CTA head and neck with without contrast along with corresponding radiologic report, no large vessel occlusion, no stenosis or occlusion. I was notified by nursing staff at approximately 12:15 PM the patient is still complaining of a headache, because of the patient's elevated creatinine, we will pursue narcotic medication with 0.5 mg IV Dilaudid for analgesia. Will add on inflammatory markers to include ESR and CRP. CRP within normal limits ESR within normal limits Reexamination of the patient at approximately 1:25 PM, patient is resting comfortably in bed, headache is improved, other symptomatology is improved, discussed all results with the patient at the bedside patient family in agreement with the current treatment plan/discharge plan. Will need outpatient neurology follow-up for most likely complex migraine. I discussed all laboratory studies with patient family bedside patient and family in agreement with current treatment plan/discharge plan, strict ED return precautions were given. Critical Care Critical Care Time Critical Care Time: No
--- NOTE | 2025-07-23 10:25 | CT_ITS ---
PROCEDURE INFORMATION: Exam: CT Head Without Contrast Exam date and time: 07/23/2025 11:40 AM Age: 50 years old Clinical indication: Pain; Headache; Additional info: Headache, intermittent amnesia TECHNIQUE: Imaging protocol: Computed tomography of the head without contrast. Radiation optimization: All CT scans at this facility use at least one of these dose optimization techniques: automated exposure control; mA and/or kV adjustment per patient size (includes targeted exams where dose is matched to clinical indication); or iterative reconstruction. COMPARISON: CT HEAD/BRAIN WO CON 01/16/2022 12:39 AM FINDINGS: Brain: There is no evidence of acute parenchymal hemorrhage, extra-axial collection, or acute infarction. There is no mass effect, midline shift, or downward herniation. Cerebral ventricles: No ventriculomegaly. Paranasal sinuses: Visualized sinuses are unremarkable. No fluid levels. Mastoid air cells: Visualized mastoid air cells are well aerated. Bones: Unremarkable. No acute fracture. Soft tissues: Unremarkable. IMPRESSION: No acute intracranial abnormality.
--- OUTSIDE RECORDS SUMMARY | 2025-07-23 10:25 | XMS_ITS ---
Author Organization [facility] Address [address] [place] [address] Phone Care Team Providers Care Matlab Developer Name Role Phone Unavailable Primary Care Provider Unavailabl e Active Problems Patient Care Coordination No te Formatting of this note migh t be different from the original. OMT Intake form scanned on 08/02/2019. Ricardo 02/19/15#[id number] Problem Noted Date Diagnosed Date History of laparoscopic adjustable gastric shey ng 01/22/2022 Other dysphagia 01/22/2022 Malignant melanoma of scalp 12/01/2014 Headache Temporomandibular joint disorders, unspecified Asthma Backache, unspecified Esophageal reflux Melanoma in situ of scalp Current Treatment and Therapy Plans No current plan information found. Past Treatment and Therapy Plans
--- OUTSIDE RECORDS SUMMARY | 2025-07-23 10:25 | XMS_ITS | Clinical Summary ---
Author Organization [facility] Address [address] [place] [address] Care Team Providers Care Roll Out Manager Name Role Phone Blade Light MD Primary Care Provider [phone] Allergies No known active allergies Medications cyclobenzaprine [...] 2) 01/04/2024 INFLUENZA VACCINE 03/03/2025 Insurance [employer] [facility] Advance Directives * CPR (Attempt to Resuscitate) (Latest Code Status on File) Date Activated Date Inactivated Comments 03/18/2023 4:47 PM 03/22/2023 3:12 PM Question Answer Comments Code Status (Patient has no pulse and is not breathing): CPR (Attempt to Resuscitate) Medical Interventions (Patie nt has pulse or is breathing): Full Support Level Of Support Discussed With: Patient Care Teams Roll Out Manager Relationship Specialty Start Date End Date Blade Light MD [address] [facility] [address] ATTN: [place] [address] PCP - General Emergency Medicine 03/18/23
--- OUTSIDE RECORDS SUMMARY | 2025-07-23 10:25 | XMS_ITS | Clinical Summary ---
Author Organization [facility] Address [address], [address] [place] [address] Care Team Providers Care Hand Clipper Name Role Phone Blu Rodriguez MD Primary Care Provider [phone] Allergies Active Allergy Reactions Criticality Noted Date [...] of Treatment Not on file Care Teams Hand Clipper Relationship Specialty Start Date End Date Blu Rodriguez MD PCP - General 11/23/14
--- OUTSIDE RECORDS SUMMARY | 2025-07-23 10:25 | XMS_ITS | Clinical Summary ---
Author Organization [facility] Address [address] [place] [address] Care Team Providers Care Fast Food Assistant Restaurant Manager Name Role Phone Blu Rodriguez MD Primary Care Provider [phone] Allergies Active Allergy Reactions Criticality Noted Date [...] 01/04/2024 UKY-Zoster Vaccines (1 of 2) 01/04/2024 [id number] Vaccine (1 - 20 25-26 season) 2025 [...] patient's age to complete this topic [facility] [facility] Care Teams Fast Food Assistant Restaurant Manager Relationship Specialty Start Date End Date Blu Rodriguez MD [address] [place] [address] PCP - General 09/23/22
--- OUTSIDE RECORDS SUMMARY | 2025-07-23 10:25 | XMS_ITS | Clinical Summary ---
Author Organization [facility] Address [address] [place] [address] Phone Care Team Providers Care Numerical Control Lathe Operator Name Role Phone Unavailable Primary Care Provider [...] 11/12/2022 fluticasone propionate (FLONASE) 50 mcg/actuation Nasl [place], SuspensionIndicati ons:Seasonal allergic rhinitis due to other [...] OMT Intake form scanned on 08/02/2019. Ricardo 02/19/15#[id number] Problem Noted Date Diagnosed Date History of [...] Surgery Date Site/Laterality Comments APPENDECTOMY LAP BAND [id number] BREAST ENHANCEMENT SURGERY ABDOMINAL EXPLORATION SURGERY SKIN [...] No Mainous, Verito, RMA Insurance [id number] [id number] [employer] POS [id number] [id number] [employer] POS
--- NOTE | 2025-07-23 10:27 | CT_ITS ---
PROCEDURE INFORMATION: Exam: CTA Neck Without And With Contrast Exam date and time: 07/23/2025 11:42 AM Age: 50 years old Clinical indication: Headache and other: Intermittent amnesia; Additional info: Headache, intermittent amnesia TECHNIQUE: Imaging protocol: Computed tomographic angiography of the neck without and with contrast. Exam focused on the cervical segments of the vasculature. 3D rendering (Not supervised by radiologist): MIP and/or 3D reconstructed images were created by the technologist. Radiation optimization: All CT scans at this facility use at least one of these dose optimization techniques: automated exposure control; mA and/or kV adjustment per patient size (includes targeted exams where dose is matched to clinical indication); or iterative reconstruction. Contrast material: ISOVUE; Contrast volume: 80 ml; Contrast route: INTRAVENOUS (IV); COMPARISON: CT HEAD/BRAIN WO CON 07/23/2025 11:40 AM FINDINGS: Right common carotid artery: No stenosis. No dissection or occlusion. Right internal carotid artery: No stenosis of the extracranial segment. No dissection or occlusion. Right external carotid artery: No occlusion or stenosis of the origin. Left common carotid artery: No stenosis. No dissection or occlusion. Left internal carotid artery: No stenosis of the extracranial segment. No dissection or occlusion. Left external carotid artery: No occlusion or stenosis of the origin. Right vertebral artery: No stenosis. No dissection or occlusion. Left vertebral artery: No stenosis. No dissection or occlusion. Soft tissues: Normal. No significant soft tissue swelling. Bones/joints: No acute fracture. IMPRESSION: No stenosis or occlusion. REFERENCES: NASCET CRITERIA. The degree of stenosis in the cervical segment of the internal carotid artery is based on NASCET criteria. Normal is no stenosis. Mild is less than 50% stenosis. Moderate is 50-69% stenosis. Severe is 70% to 99% stenosis. Total occlusion is no detectable patent lumen.
--- NOTE | 2025-07-23 10:27 | CT_ITS ---
PROCEDURE INFORMATION: Exam: CTA Head Without And With Contrast, Arteriography Exam date and time: 07/23/2025 11:42 AM Age: 50 years old Clinical indication: Headache and other: Intermittent amnesia; Additional info: Headache, intermittent amnesia TECHNIQUE: Imaging protocol: Computed tomographic angiography of the head without and with contrast. Exam focused on the arteries. 3D rendering (Not supervised by radiologist): MIP and/or 3D reconstructed images were created by the technologist. Radiation optimization: All CT scans at this facility use at least one of these dose optimization techniques: automated exposure control; mA and/or kV adjustment per patient size (includes targeted exams where dose is matched to clinical indication); or iterative reconstruction. Contrast material: ISOVUE; Contrast volume: 80 ml; Contrast route: INTRAVENOUS (IV); COMPARISON: CT HEAD/BRAIN WO CON 07/23/2025 11:40 AM FINDINGS: ANTERIOR CIRCULATION: Right internal carotid artery: Intracranial segment is patent with no significant stenosis or occlusion. No aneurysm. Right middle cerebral artery: No occlusion or significant stenosis. No aneurysm. Right anterior cerebral artery: No occlusion or significant stenosis. No aneurysm. Left internal carotid artery: Intracranial segment is patent with no significant stenosis. No aneurysm. Left middle cerebral artery: No occlusion or significant stenosis. No aneurysm. Left anterior cerebral artery: No occlusion or significant stenosis. No aneurysm. POSTERIOR CIRCULATION: Right vertebral artery: No occlusion or significant stenosis. No aneurysm. Left vertebral artery: No occlusion or significant stenosis. No aneurysm. Basilar artery: No occlusion or significant stenosis. No aneurysm. Right posterior cerebral artery: No occlusion or significant stenosis. No aneurysm. Left posterior cerebral artery: No occlusion or significant stenosis. No aneurysm. HEAD: Brain: Normal. No hemorrhage. Unremarkable white matter. No mass effect. Cerebral ventricles: Normal. No ventriculomegaly. Bones: Unremarkable. No acute fracture. Paranasal sinuses: Visualized sinuses are normal. No fluid levels. Mastoid air cells: Visualized mastoids are normal. No mastoid effusion. Soft tissues: Unremarkable. IMPRESSION: 1. No large vessel occlusion. 2. Unremarkable CT head.
--- NOTE | 2025-07-23 10:36 | ECG_ITS ---
APPROVED REPORT Exam: Resting ECG HR:99 bpm ECG Measurements Heart Rate 99 AXES MA 170 P 77 QRSd 89 QRS -6 QT 339 T 71 QTc 395 Conclusion SINUS RHYTHM LOW QRS VOLTAGE IN PRECORDIAL LEADS [QRS DEFLECTION < 1.0 mV IN CHEST LEADS] BORDERLINE ECG Electronically signed by : RADHA DOVE, 07/24/2025 16:03:23
[2025-07-23 10:37] LABS: Hematocrit 35.2 % (37.0-47.0); Hemoglobin 12.0 g/dL (12.2-16.2); Immature Granulocytes % 0.4 %; Mean Corpuscular HGB Conc 34.1 g/dL (31.8-35.4); Mean Corpuscular Hemoglobin 29.6 pg (27.0-31.2); Mean Corpuscular Volume 86.7 fl (81-99); Nucleated Red Blood Cells % 0 %; Platelet Count 324 K/mm3 (142-424); Red Blood Count 4.06 M/mm3 (4.20-5.40); Red Cell Distribution Width-SD 42.5 fL; White Blood Count 7.6 K/mm3 (4.8-10.8)
[2025-07-23 10:41] LABS: Chloride 101 mmol/L (98-107); Potassium 3.2 mmoL/L (3.5-5.1); Sodium 136 mmol/L (136-145)
[2025-07-23] MEDS: DEXAMETHASONE 4MG/ML 1ML VIAL 10 MG IV (10:42)
[2025-07-23 10:43] LABS: Blood Urea Nitrogen 14 mg/dl (7-17)
[2025-07-23 10:44] LABS: Alanine Aminotransferase 15 U/L (12-78); Alkaline Phosphatase 73 U/L (38-126); Anion Gap 10.2 mEq/L (5-15); Aspartate Amino Transferase 23 U/L (14-36); Bilirubin,Total 0.4 mg/dl (0.2-1.3); Calcium 9.4 mg/dl (8.4-10.2); Carbon Dioxide 28 mmol/L (22.0-30.0); Creatinine Clearance Estimated 44 mL/min (50-200); Creatinine,Serum 1.30 mg/dl (0.52-1.04); Estimated Glomerular Filt Rate 43 ml/min (>60); GFR (African American) 52 ML/MIN (>60); Glucose 103 mg/dl (74-100); Total Protein,Serum 7.1 g/dl (6.3-8.2)
[2025-07-23 10:45] LABS: Magnesium 1.9 mg/dl (1.6-2.3)
[2025-07-23 10:45] LABS: Microscopic, Urine URINE MICROSCOPIC (MICROSCOPIC)
[2025-07-23] MEDS: METOCLOPRAMIDE HCL 10MG/2ML VIAL 10 MG IVP (10:48)
[2025-07-23 11:02] LABS: NT Pro Brain Natriuretic Pep. < 20.0 pg/mL (0-125)
[2025-07-23] MEDS: POTASSIUM CHLORIDE 20MEQ TAB 40 MEQ PO (11:02)
[2025-07-23 11:04] LABS: Bilirubin,Urine Negative (Negative); Color,Urine YELLOW (Yellow); Glucose,Urine (UA) Negative (Negative); Ketones,Urine Negative (Negative); Leukocyte Esterase,Urine Negative (Negative); PH,Urine 6.0 (5.0-8.5); Protein,Urine Negative (Negative); Specific Gravity, Urine >= 1.030 (1.005-1.030); Urobilinogen,Urine 0.2 EU/dl (0.2)
[2025-07-23 11:05] LABS: Troponin I < 0.01 ng/ml (0.00-0.034)
[2025-07-23 11:14] LABS: Barbiturates Screen,Urine Negative ng/ml (<200)
[2025-07-23 11:15] LABS: Amphetamine/Metha Screen,Urine Negative ng/ml (<1000); Benzodiazepines Screen,Urine Negative ng/ml (<200)
[2025-07-23 11:17] LABS: Methadone Screen,Urine Negative ng/ml (<300)
[2025-07-23 11:18] LABS: Opiate Screen,Urine Negative ng/ml (<300)
[2025-07-23 11:19] LABS: Phencyclidine Screen,Urine Negative ng/ml (<25)
[2025-07-23 11:20] LABS: RBC,Urine Occasional #/hpf (0-3)
[2025-07-23 11:21] LABS: Bacteria,Urine Trace /lpf; White Blood Cell Casts,Urine Occasional #/lpf (0)
[2025-07-23 11:29] LABS: Ammonia < 9 umol/L (9-30)
[2025-07-23 11:39] LABS: Albumin Level 4.4 g/dl (3.5-5.0); Albumin/Globulin Ratio 1.6 (1.1-1.8); Globulin 2.7 g/dL (1.3-3.2)
[2025-07-23 11:42] LABS: Hepatitis C Ab Qual. W/ RFX NEGATIVE (Negative)
[2025-07-23] MEDS: SODIUM CHLORIDE 0.9% 10ML SYR (RAD ONLY) 10 ML IV (11:42)
[2025-07-23] MEDS: 0.9 % SODIUM CHLORIDE 50 ML VIAL IV (11:45)
[2025-07-23] MEDS: IOPAMIDOL-370 (76%);100ML BOTTLE 80 ML IV (11:45)
[2025-07-23] MEDS: LACTATED RINGERS 1000ML 1,000 ML 999 ML IV (12:06)
[2025-07-23] MEDS: HYDROMORPHONE 2MG/ML SYRINGE 0.5 MG IV (12:32)
[2025-07-23 12:52] LABS: C-Reactive Protein 1.0 mg/L (0-4)
== END 2025-07-23 13:38 | disposition home or self-care (01) ==
PROVIDERS: Physician Assistant; Emergency Provider Student in an Organized Health Care Education/Training Program; PCP Family Medicine
DX: G43.909 Migraine, unspecified, not intractable, without status migrainosus (principal); R41.3 Other amnesia; E87.6 Hypokalemia; R31.9 Hematuria, unspecified; Z79.899 Other long term (current) drug therapy; Z87.891 Personal history of nicotine dependence
CPT/HCPCS: 70450; 70496; 70498; 80053; 80307; 81001; 82140; 83735; 83880; 84484; 85025; 85651; 86140; 86803; 87389; 93005; 96361; 96374; 96375; 99285; J1100; J1171; J1200; J2765; J7120; Q9967